=== PATIENT | male | born 1950 | race Caucasian/White ===

== ENCOUNTER 2018-11-01 16:08 | Inpatient (IN) | payer MEDICARE ==
[~2018-11-01] VITALS: Ht 182.9 cm; Wt 145.0 kg
[~2018-11-01 16:08] MED LIST: ACET325 PO; ARIXTRA SC; ASPI325 PO; Aspirin EC81 MG PO; BRILINTA90 MG PO; CHLO25B PO; CHLOROTHALIDONE PO; DOC250 PO; FOLI1 PO; HUMULIN R500 UNIT/1 SC; Hair, Skin & N1 EACH PO; LISI20 PO; LOSARTAN POTAS100 MG PO; METF500C PO; METO50 PO; NITR.4SL SL; PRAV20 PO; PYRI100 PO; Pepcid20 MG PO; SILD50TA PO; TAMS.4ER PO; THIA100 PO; Zofran Odt4 MG SL; [UNRECOGNIZED DRUG - OTHER] SC
[2018-11-01] MEDS ORDERED: VITAMIN B-121000 MCG PO (17:29)
[2018-11-01] MEDS ORDERED: CYCL10 PO (17:29)
[2018-11-01] MEDS ORDERED: TRULICITY1.5 MG/0.5 SC (17:30)
[2018-11-01] MEDS ORDERED: LOSA25 PO (17:30)
[2018-11-01] MEDS ORDERED: Glucose4 GM PO (17:31)
[2018-11-02 05:22] LABS: BASOPHILS ABSOLUTE AUTO 0.04 K/mm3 (0.00-0.23); BASOPHILS PERCENT AUTO 1 % (0-2); EOSINOPHILS ABSOLUTE AUTO 0.11 K/mm3 (0.00-0.68); EOSINOPHILS PERCENT AUTO 2 % (0-6); Hemoglobin 14.3 g/dL (13.5-17.5); IMMATURE GRAN ABSOLUTE AUTO 0.02 K/mm3 (0.00-0.10); IMMATURE GRAN PERCENT AUTO 0 % (0-1); LYMPHOCYTES ABSOLUTE AUTO 1.45 K/mm3 (0.84-5.20); LYMPHOCYTES PERCENT AUTO 27 % (21-46); MONOCYTES ABSOLUTE AUTO 0.67 K/mm3 (0.16-1.47); MONOCYTES PERCENT AUTO 13 % (4-13); Mean Corpuscular HGB 29.5 pg (26.0-34.0); Mean Corpuscular HGB Conc 33.3 g/dL (31.5-36.5); Mean Corpuscular Volume 89 fL (80-100); Mean Platelet Volume 10.1 fL (9.1-12.4); NEUTROPHILS ABSOLUTE AUTO 3.08 K/mm3 (1.96-9.15); NEUTROPHILS PERCENT AUTO 57 % (41-73); Platelet Count 174 K/mm3 (150-400); RDW Coefficient Variation 13.5 % (11.7-14.2); RDW Standard Deviation 43.8 fL (35.1-46.3); Red Blood Cell Count 4.84 M/mm3 (4.30-5.90); White Blood Cell Count 5.37 K/mm3 (4.00-11.30)
[2018-11-02 05:35] LABS: International Normalized Ratio 1.05; Prothrombin Time Results 11.1 Sec (9.7-11.5)
[2018-11-02 05:56] LABS: Anion Gap 8 mmol/L (6-16); Blood Urea Nitrogen 18 mg/dL (8-24); Bun/Creatinine Ratio 20.3 (12.0-20.0); CO2, Blood 29 mmol/L (21-32); Calcium, Blood 8.9 mg/dL (8.5-10.1); Chloride, Blood 105 mmol/L (98-108); Creatinine, Blood 0.89 mg/dL (0.60-1.20); Glomerular Filtration Rate >60 (60-); Glucose, Blood 84 mg/dL (70-99); Magnesium, Blood 2.1 mg/dL (1.6-2.4); Potassium, Blood 3.3 mmol/L (3.5-5.5); Sodium, Blood 142 mmol/L (136-145)
--- NOTE | 2018-11-02 11:15 | NUR ---
Assumed Care: Assumed care of pt at approx 1030 when pt arrived to room from . Pt has R radial access site that is free from s/sx of bleed or hematoma and has TR band in place. Spoke with Dr. Montoya who does not want to resume any anticoagulation at this time when asked, is okay if pt eats lunch, but would like pt to be NPO after that. Pt is A&Ox4. See shift assessment for detailed assessment. Plan is to transfer pt to [facility] for bypass likely today. Lungs clear and breathing e/u on RA. Pt currently resting in bed with call light within reach. Denies any further questions, complaints or requests at this time. Will continue to [facility].
--- NOTE | 2018-11-02 11:55 | NUR ---
Update: Pt given nitro x2 doses for c/o chest pressure 10/16. States that pressure in chest has completely resolved with the 2 doses.
--- NOTE | 2018-11-02 15:37 | NUR ---
Summary/[facility] Transfer: Pt transferred via [facility] transfer w/EMS at approx 1530. VSS. In no apparent sign of distress. No changes in mentation. Pt has denied any further CP/Pressure since he was medicated with nitro x2 in this unit. Report called to HERRERA Valera at [facility]. Pt sent with all belongings and needed paperwork. Denies any further questions, complaints or requests at time of transfer.
== END 2018-11-02 15:42 | disposition short-term general hospital (02) | DRG 287 ==
LOC: ER 16:08 → ERHOLD 17:35 → PCU 11-02 08:47
PROVIDERS: Internal Medicine Cardiovascular Disease; ADMIT Internal Medicine
PROC: B2111ZZ Fluoroscopy of Multiple Coronary Arteries using Low Osmolar Contrast (ICD-10-PCS; principal; 2018-11-02)
PROC: 4A023N7 Measurement of Cardiac Sampling and Pressure, Left Heart, Percutaneous Approach (ICD-10-PCS; 2018-11-02)
DX: I25.110 Atherosclerotic heart disease of native coronary artery with unstable angina pectoris (principal); I45.2 Bifascicular block; E66.2 Morbid (severe) obesity with alveolar hypoventilation; T82.855A Stenosis of coronary artery stent, initial encounter; G43.909 Migraine, unspecified, not intractable, without status migrainosus; E11.9 Type 2 diabetes mellitus without complications; M10.9 Gout, unspecified; Z95.5 Presence of coronary angioplasty implant and graft; D45 Polycythemia vera; Z86.718 Personal history of other venous thrombosis and embolism; E78.5 Hyperlipidemia, unspecified; I10 Essential (primary) hypertension; I25.2 Old myocardial infarction; N40.0 Benign prostatic hyperplasia without lower urinary tract symptoms; G89.29 Other chronic pain; M19.90 Unspecified osteoarthritis, unspecified site; Z79.4 Long term (current) use of insulin; Z87.891 Personal history of nicotine dependence; Z86.711 Personal history of pulmonary embolism
CPT/HCPCS: 36415; 80048; 82947; 83735; 84484; 85025; 85610; 86850; 86900; 86901; 93005; 93010; 93458; 99152; 99153; 99285-25; C1769; C1887; C1894; C8929; J0690; J1644; J2250; J3010; J7030; Q9957; Q9967

== ENCOUNTER 2018-11-15 12:31 | Emergency (ER) | payer SELFPAY ==
[~2018-11-15] VITALS: Ht 182.9 cm; Wt 140.6 kg
[~2018-11-15 12:31] MED LIST changes: +CYCL10 PO; +Glucose4 GM PO; +LOSA25 PO; +TRULICITY1.5 MG/0.5 SC; +VITAMIN B-121000 MCG PO
== END 2018-11-15 15:03 | disposition home or self-care (01) ==
LOC: ER 12:31
DX: I97.631 Postprocedural hematoma of a circulatory system organ or structure following cardiac bypass (principal); I25.2 Old myocardial infarction; E11.9 Type 2 diabetes mellitus without complications; Z86.718 Personal history of other venous thrombosis and embolism; Z87.891 Personal history of nicotine dependence; Z79.82 Long term (current) use of aspirin; Z79.899 Other long term (current) drug therapy; Z79.4 Long term (current) use of insulin; Z95.1 Presence of aortocoronary bypass graft
CPT/HCPCS: 36415; 93005; 93010; 93971; 99284-25

== ENCOUNTER 2018-11-27 06:23 | Emergency (ER) | payer MEDICARE ==
[~2018-11-27] VITALS: Ht 182.9 cm; Wt 131.5 kg
[2018-11-27] MEDS ORDERED: TRULICITY1.5 MG/0.5 SQ (06:43)
[2018-11-27] MEDS ORDERED: DICLOFENAC GEL (06:48)
[2018-11-27] MEDS ORDERED: FURO40 PO (06:48)
[2018-11-27 07:03] LABS: BASOPHILS ABSOLUTE AUTO 0.02 K/mm3 (0.00-0.23); BASOPHILS PERCENT AUTO 0 % (0-2); EOSINOPHILS PERCENT AUTO 0 % (0-6); Hemoglobin 11.9 g/dL (13.5-17.5); IMMATURE GRAN ABSOLUTE AUTO 0.06 K/mm3 (0.00-0.10); IMMATURE GRAN PERCENT AUTO 1 % (0-1); LYMPHOCYTES PERCENT AUTO 6 % (21-46); MONOCYTES ABSOLUTE AUTO 0.57 K/mm3 (0.16-1.47); MONOCYTES PERCENT AUTO 5 % (4-13); Mean Corpuscular HGB 27.5 pg (26.0-34.0); Mean Corpuscular HGB Conc 32.2 g/dL (31.5-36.5); Mean Corpuscular Volume 86 fL (80-100); Mean Platelet Volume 9.8 fL (9.1-12.4); NEUTROPHILS ABSOLUTE AUTO 10.42 K/mm3 (1.96-9.15); NEUTROPHILS PERCENT AUTO 89 % (41-73); Platelet Count 251 K/mm3 (150-400); RDW Coefficient Variation 14.3 % (11.7-14.2); RDW Standard Deviation 44.6 fL (35.1-46.3); Red Blood Cell Count 4.32 M/mm3 (4.30-5.90); White Blood Cell Count 11.77 K/mm3 (4.00-11.30)
[2018-11-27 07:13] LABS: Alanine Aminotransfer (ALT/SGP 40 U/L (12-78); Albumin, Blood 3.2 g/dL (3.4-5.0); Albumin/Globulin Ratio 0.8 (0.8-1.8); Alk Phos 133 U/L (50-136); Anion Gap 13 mmol/L (6-16); Aspartate Aminotrans (AST/SGOT 33 U/L (12-37); Bilirubin, Total 2.1 mg/dL (0.1-1.0); Blood Urea Nitrogen 19 mg/dL (8-24); Bun/Creatinine Ratio 18.8 (12.0-20.0); CO2, Blood 27 mmol/L (21-32); Calcium, Blood 8.9 mg/dL (8.5-10.1); Chloride, Blood 92 mmol/L (98-108); Creatinine, Blood 1.01 mg/dL (0.60-1.20); Glomerular Filtration Rate >60 (60-); Glucose, Blood 290 mg/dL (70-99); Potassium, Blood 2.9 mmol/L (3.5-5.5); Sodium, Blood 132 mmol/L (136-145); Total Protein, Blood 7.2 g/dL (6.4-8.2); Troponin I <0.015 ng/mL (0.000-0.040)
[2018-11-27 10:47] LABS: Source, Urine Voided
[2018-11-27 10:59] LABS: Bilirubin, Urine Neg (Neg); Blood, Urine Neg (Neg); Glucose Qualitative, Urine Neg (Neg); Ketones, Urine Neg (Neg); Leukocyte Esterase, Urine Neg (Neg); Nitrite, Urine Neg (Neg); Protein, Urine 1+ (Neg); Urobilinogen, Urine NORM (Normal)
[2018-11-27 11:46] LABS: Anion Gap 9 mmol/L (6-16); Blood Urea Nitrogen 17 mg/dL (8-24); Bun/Creatinine Ratio 18.9 (12.0-20.0); CO2, Blood 26 mmol/L (21-32); Calcium, Blood 7.4 mg/dL (8.5-10.1); Chloride, Blood 101 mmol/L (98-108); Glomerular Filtration Rate >60 (60-); Glucose, Blood 252 mg/dL (70-99); Potassium, Blood 3.3 mmol/L (3.5-5.5); Sodium, Blood 136 mmol/L (136-145)
[2018-11-27 11:49] LABS: Appearance, Urine Clear (Clear); Color, Urine Yellow (P-Yellow)
--- NOTE | 2018-11-27 14:28 | NUR ---
Echocardiogram completed.
== END 2018-11-27 18:57 | disposition short-term general hospital (02) ==
LOC: ER 06:23
PROVIDERS: Emergency Medicine
DX: L03.115 Cellulitis of right lower limb (principal); Z88.8 Allergy status to other drugs, medicaments and biological substances; Z79.899 Other long term (current) drug therapy; Z79.4 Long term (current) use of insulin; Z79.82 Long term (current) use of aspirin; I25.2 Old myocardial infarction; E11.9 Type 2 diabetes mellitus without complications; Z87.891 Personal history of nicotine dependence
CPT/HCPCS: 36415; 71045; 80048; 80053; 83605; 83880; 84484; 85025; 93005; 93010; 93308; 93321; 96361; 96365-59; 96366; 96375-59; 99285-25; A9270-GY; J1644; J2250; J2405; J3010; J3370; J7030; J7050; J7120

== ENCOUNTER 2021-01-24 20:03 | Inpatient (IN) | payer OTHER ==
[~2021-01-24] VITALS: Ht 185.4 cm; Wt 133.9 kg
[~2021-01-24 20:03] MED LIST changes: -ARIXTRA SC; +ARIXTRA10 MG/0.8 SC; -Aspirin EC81 MG PO; +DICLOFENAC GEL; -DOC250 PO; +DOCU100 PO; -FOLI1 PO; +FURO40 PO; +Folic Acid0.8 MG PO; +TRULICITY1.5 MG/0.5 SQ
[2021-01-24 20:29] LABS: BASOPHILS ABSOLUTE AUTO 0.02 K/mm3 (0.00-0.23); BASOPHILS PERCENT AUTO 0 % (0-2); EOSINOPHILS PERCENT AUTO 0 % (0-6); Hematocrit 47.7 % (37.0-53.0); Hemoglobin 16.6 g/dL (13.5-17.5); IMMATURE GRAN ABSOLUTE AUTO 0.01 K/mm3 (0.00-0.10); IMMATURE GRAN PERCENT AUTO 0 % (0-1); LYMPHOCYTES ABSOLUTE AUTO 0.88 K/mm3 (0.84-5.20); LYMPHOCYTES PERCENT AUTO 20 % (21-46); MONOCYTES ABSOLUTE AUTO 0.28 K/mm3 (0.16-1.47); MONOCYTES PERCENT AUTO 6 % (4-13); Mean Corpuscular HGB 29.4 pg (26.0-34.0); Mean Corpuscular HGB Conc 34.8 g/dL (31.5-36.5); Mean Corpuscular Volume 84 fL (80-100); Mean Platelet Volume 10.9 fL (9.1-12.4); NEUTROPHILS ABSOLUTE AUTO 3.31 K/mm3 (1.96-9.15); NEUTROPHILS PERCENT AUTO 74 % (41-73); Platelet Count 118 K/mm3 (150-400); RDW Coefficient Variation 15.3 % (11.7-14.2); RDW Standard Deviation 47.2 fL (35.1-46.3); Red Blood Cell Count 5.65 M/mm3 (4.30-5.90)
[2021-01-24 20:42] LABS: International Normalized Ratio 1.04; Prothrombin Time Results 11.2 Sec (9.7-11.5)
[2021-01-24 20:49] LABS: Alanine Aminotransfer (ALT/SGP 52 U/L (12-78); Albumin, Blood 3.2 g/dL (3.4-5.0); Albumin/Globulin Ratio 0.7 (0.8-1.8); Alk Phos 59 U/L (50-136); Anion Gap 13 mmol/L (6-16); Aspartate Aminotrans (AST/SGOT 83 U/L (12-37); Bilirubin, Total 1.1 mg/dL (0.1-1.0); Blood Urea Nitrogen 15 mg/dL (8-24); Bun/Creatinine Ratio 21.1 (12.0-20.0); CO2, Blood 23 mmol/L (21-32); Calcium, Blood 8.8 mg/dL (8.5-10.1); Chloride, Blood 98 mmol/L (98-108); Creatinine, Blood 0.71 mg/dL (0.60-1.20); Globulin, Blood 4.3 g/dL (2.2-4.0); Glomerular Filtration Rate >60 (60-); Glucose, Blood 143 mg/dL (70-99); Potassium, Blood 3.5 mmol/L (3.5-5.5); Sodium, Blood 134 mmol/L (136-145); Total Protein, Blood 7.5 g/dL (6.4-8.2)
[2021-01-24 21:06] LABS: SARS-Cov-2 (COVID-19) PCR, MMC POSITIVE (NEGATIVE)
[2021-01-24 22:20] LABS: C-Reactive Protein, High Sens. 78.1 mg/L (0.000-3.000)
[2021-01-24] MEDS ORDERED: METF500C PO (22:55)
[2021-01-24] MEDS ORDERED: JARDIANCE25 MG PO (22:55)
[2021-01-24] MEDS ORDERED: Hair, Skin & N1 EACH PO (22:56)
[2021-01-24] MEDS ORDERED: PYRI100 PO (22:56)
[2021-01-24] MEDS ORDERED: GABA300 PO (22:56)
[2021-01-24] MEDS ORDERED: LACT PO (22:56)
[2021-01-24] MEDS ORDERED: LOSA25 PO (22:57)
[2021-01-24] MEDS ORDERED: OMEP20ER PO (22:57)
[2021-01-24] MEDS ORDERED: ALOGLIPTIN25 M1 PO (22:57)
[2021-01-24] MEDS ORDERED: Aspirin EC81 MG PO (23:01)
--- NOTE | 2021-01-25 01:55 | NUR ---
PT ADMITTED TO PCU FROM ER. PT REQUESTING TO STAND AT BEDSIDE FOR URINATION - USE OF URINAL WITH SBA. PT THEN ABLE TO STAND AND PIVOT TO PCU BED. PT HAS NON-REBREATHER ON AT 15L OXYGEN. ONCE PT SETTLED INTO BED, CPAP PLACED ON - 70% FIO2. CONTINUOUS BIOX PLACED ON - SATS WNL. PT HAS A SCAR TO HIS RIGHT LOWER EXTREMITY. ORIENTED TO ROOM, CALL LIGHT, AND RAPID RESPONSE. FLUIDS AT BEDSIDE. BED IN LOW POSITION. CALL LIGHT WITHIN REACH.
--- NOTE | 2021-01-25 04:00 | NUR ---
SPOKE TO DR. LOVING - UPDATED ON PT'S QT OF .[address] LOVING REQUESTED ADD ON OF MAGNESIUM TO AM LABS - DONE. PT DENIES ANY CHEST PAIN OR DISCOMFORT. CALL LIGHT WITHIN REACH. BED IN LOW POSITION.
[2021-01-25 04:19] LABS: BASOPHILS ABSOLUTE AUTO 0.01 K/mm3 (0.00-0.23); BASOPHILS PERCENT AUTO 0 % (0-2); EOSINOPHILS PERCENT AUTO 0 % (0-6); Hematocrit 48.9 % (37.0-53.0); Hemoglobin 16.3 g/dL (13.5-17.5); IMMATURE GRAN ABSOLUTE AUTO 0.01 K/mm3 (0.00-0.10); IMMATURE GRAN PERCENT AUTO 0 % (0-1); LYMPHOCYTES ABSOLUTE AUTO 0.49 K/mm3 (0.84-5.20); LYMPHOCYTES PERCENT AUTO 16 % (21-46); MONOCYTES ABSOLUTE AUTO 0.15 K/mm3 (0.16-1.47); MONOCYTES PERCENT AUTO 5 % (4-13); Mean Corpuscular HGB 28.8 pg (26.0-34.0); Mean Corpuscular HGB Conc 33.3 g/dL (31.5-36.5); Mean Corpuscular Volume 87 fL (80-100); Mean Platelet Volume 10.5 fL (9.1-12.4); NEUTROPHILS ABSOLUTE AUTO 2.32 K/mm3 (1.96-9.15); NEUTROPHILS PERCENT AUTO 78 % (41-73); Platelet Count 107 K/mm3 (150-400); RDW Coefficient Variation 15.4 % (11.7-14.2); RDW Standard Deviation 48.7 fL (35.1-46.3); Red Blood Cell Count 5.65 M/mm3 (4.30-5.90); White Blood Cell Count 2.98 K/mm3 (4.00-11.30)
[2021-01-25 04:39] LABS: Alanine Aminotransfer (ALT/SGP 44 U/L (12-78); Albumin, Blood 3.1 g/dL (3.4-5.0); Albumin/Globulin Ratio 0.7 (0.8-1.8); Alk Phos 61 U/L (50-136); Anion Gap 17 mmol/L (6-16); Aspartate Aminotrans (AST/SGOT 55 U/L (12-37); Bilirubin, Total 0.9 mg/dL (0.1-1.0); Blood Urea Nitrogen 19 mg/dL (8-24); Bun/Creatinine Ratio 22.5 (12.0-20.0); CO2, Blood 20 mmol/L (21-32); Calcium, Blood 8.6 mg/dL (8.5-10.1); Chloride, Blood 98 mmol/L (98-108); Creatinine, Blood 0.85 mg/dL (0.60-1.20); Globulin, Blood 4.3 g/dL (2.2-4.0); Glomerular Filtration Rate >60 (60-); Glucose, Blood 255 mg/dL (70-99); Magnesium, Blood 2.2 mg/dL (1.6-2.4); Potassium, Blood 3.3 mmol/L (3.5-5.5); Sodium, Blood 135 mmol/L (136-145); Total Protein, Blood 7.4 g/dL (6.4-8.2)
--- NOTE | 2021-01-25 05:39 | NUR ---
NO ACUTE CHANGES SINCE ADMIT AT 0155 TONIGHT. PT HAS BEEN SLEEPING WITH CPAP IN PLACE FOR APPX 2 HOURS TONIGHT. MAGNESIUM LEVEL WNL THIS AM. CONTINUOUS BIOX ON - SATS WNL. URINE CLEAR YELLOW. PT STOOD AT THE BEDSIDE WITH A SBA - USING URINAL - WILL SEND/REPORT OFF TO ONCOMING SHIFT, NEED FOR URINE SAMPLE. CALL LIGHT WITHIN REACH. BED IN LOW POSITION. FLUIDS AT BEDSIDE.
--- NOTE | 2021-01-25 06:44 | NUR ---
PT PLACED ON ISABELL CONTINOUS BIOX. SATS WNL ON CPAP, 70% O2. CALL LIGHT WITHIN REACH. BED IN LOW POSITION.
--- NOTE | 2021-01-25 16:50 | NUR ---
Spiritual care visit conducted. Patient immediately tells me about the sturggles he is having emotionally and about personal information connected depression. We discuss the effects of the virus causing in some patients depression and even SI. We explore sources of meaning and value and his spiritual beliefs. I reinforce helpful attitudes and practices, normalize his experience and provide therapeutic listening, pastoral certified alcohol drug counselor, recitation of scripture and prayer. Patient responds well and states that he is very encouraged and feeling more hopeful. I will continue to assist patient in the emotional/spiritual aspects of dealing with illness.
--- NOTE | 2021-01-25 18:38 | NUR ---
SHIFT SUMMARY PT ALERT AND ORIENTED X 4. HR STABLE. BP STABLE. NO CP OR PRESSURE REPORTED. OXYGEN SATURATION MAINTAINED ABOVE 90% ON 15 L OF OXYGEN VIA HIGH FLOW NC OR 70% FIO2 VIA CPAP. PT ENCOURAGED TO PRONE. WHEN PRONING PT'S OXYGEN SATURATION IMPROVES TO 95%. PT TOLERATING WELL. PT REPORTS TO THIS RN HE WANTS TO "GIVE UP" PASTORAL CARE NOTIFIED. SEE NOTES. PT REPORTS IMPROVEMENT IN MENTAL STATE. PT REPORTS TO THIS RN THAT HE FEELS HE HAS TROUBLE WITH SWALLOWING AND FOOD AND DRINK GET "STUCK" IN HIS THROAT. PHYSICIAN NOTIFIED. SPEECH EVAL ORDERED. WILL CONT TO MONITOR UNTIL REPORT GIVEN TO ULISES SILVERMAN.
[2021-01-26 05:07] LABS: BASOPHILS PERCENT AUTO 0 % (0-2); EOSINOPHILS PERCENT AUTO 0 % (0-6); Hematocrit 48.8 % (37.0-53.0); Hemoglobin 16.7 g/dL (13.5-17.5); IMMATURE GRAN ABSOLUTE AUTO 0.01 K/mm3 (0.00-0.10); IMMATURE GRAN PERCENT AUTO 0 % (0-1); LYMPHOCYTES PERCENT AUTO 14 % (21-46); MONOCYTES ABSOLUTE AUTO 0.37 K/mm3 (0.16-1.47); MONOCYTES PERCENT AUTO 6 % (4-13); Mean Corpuscular HGB 29.1 pg (26.0-34.0); Mean Corpuscular HGB Conc 34.2 g/dL (31.5-36.5); Mean Corpuscular Volume 85 fL (80-100); Mean Platelet Volume 10.4 fL (9.1-12.4); NEUTROPHILS ABSOLUTE AUTO 4.59 K/mm3 (1.96-9.15); NEUTROPHILS PERCENT AUTO 80 % (41-73); Platelet Count 135 K/mm3 (150-400); RDW Coefficient Variation 15.3 % (11.7-14.2); RDW Standard Deviation 47.3 fL (35.1-46.3); Red Blood Cell Count 5.74 M/mm3 (4.30-5.90); White Blood Cell Count 5.77 K/mm3 (4.00-11.30)
[2021-01-26 05:28] LABS: Albumin, Blood 3.1 g/dL (3.4-5.0); Anion Gap 8 mmol/L (6-16); Blood Urea Nitrogen 29 mg/dL (8-24); Bun/Creatinine Ratio 40.1 (12.0-20.0); CO2, Blood 28 mmol/L (21-32); Calcium, Blood 8.8 mg/dL (8.5-10.1); Chloride, Blood 101 mmol/L (98-108); Creatinine, Blood 0.72 mg/dL (0.60-1.20); Glomerular Filtration Rate >60 (60-); Glucose, Blood 207 mg/dL (70-99); Magnesium, Blood 2.5 mg/dL (1.6-2.4); Phosphorus, Blood 2.4 mg/dL (2.5-4.9); Potassium, Blood 2.9 mmol/L (3.5-5.5); Sodium, Blood 137 mmol/L (136-145)
[2021-01-26 06:23] LABS: Source, Urine Voided
[2021-01-26 06:31] LABS: Appearance, Urine Clear (Clear); Bilirubin, Urine Neg (Neg); Blood, Urine Neg (Neg); Color, Urine Yellow (P-Yellow); Glucose Qualitative, Urine 4+ (Neg); Ketones, Urine 1+ (Neg); Leukocyte Esterase, Urine Neg (Neg); Nitrite, Urine Neg (Neg); Protein, Urine 1+ (Neg); Specific Gravity, Urine 1.015 (1.003-1.022); Urobilinogen, Urine NORM (Normal)
[2021-01-26 15:04] LABS: Albumin, Blood 3.3 g/dL (3.4-5.0); Anion Gap 9 mmol/L (6-16); Blood Urea Nitrogen 32 mg/dL (8-24); Bun/Creatinine Ratio 33.7 (12.0-20.0); CO2, Blood 28 mmol/L (21-32); Calcium, Blood 8.8 mg/dL (8.5-10.1); Chloride, Blood 98 mmol/L (98-108); Creatinine, Blood 0.95 mg/dL (0.60-1.20); Glomerular Filtration Rate >60 (60-); Glucose, Blood 248 mg/dL (70-99); Magnesium, Blood 2.3 mg/dL (1.6-2.4); Phosphorus, Blood 1.4 mg/dL (2.5-4.9); Potassium, Blood 3.5 mmol/L (3.5-5.5); Sodium, Blood 135 mmol/L (136-145)
--- NOTE | 2021-01-26 18:09 | NUR ---
SHIFT SUMMARY; ASSUMED CARE AT 0700, REPORT FROM ISSAC. A/A/0X4 DURING SHIFT. AIRVO THROUGHOUT SHIFT, DECREASED BY RT TO 70% 50L. SOB WITH EXERTION. UP IN CHAIR AT BEDSIDE FOR ENTIRE SHIFT. INDEPENDANT TO BSC. VSS, NSR SATS 89-90%, SPEAKING FULL SENTENCES. NO ACUTE MEDICAL CHANGES DURING SHIFT, WILL CONTINUE TO MONITOR AND TREAT UNTIL CHANGE OF SHIFT.
--- NOTE | 2021-01-27 04:34 | NUR ---
SHIFT SUMMARY PT A&OX4. SP02>90% ON 50L AIRVO/CPAP, 75% FI02. PT SOB W/ EXERTION. PRONED OCCASIONALLY. TELEMETRY READS SR W/ BBB, HR 50'S-70'S. PT C/O OF BACK PAIN THIS SHIFT, MEDICATED W/ TYLENOL PER EMAR X1. PT VOIDED IN URINAL AT BEDSIDE. PT REQUESTED THIS RN CALL SON, MARCK, TO UPDATE HIM. CALL LIGHT IN REACH. WILL GIVE REPORT TO ONCOMING NURSE.
--- NOTE | 2021-01-27 15:03 | NUR ---
Spiritual care visit conducted. Patient is in better spirits today and states that he has been up in the chair and walking around a very little bit but he was unable to do so yesterday. Patient tells me that the visit from spiritual care two days ago was very pivital to turning his focus around to a positive direction. I continue to use gentle encouragement, recitation of scripture, pasoral drug and alcohol counselor and prayer to lighten the emotional/spiritual weight patient is carrying. Patient states that again the visit brought added strength to patient and voices appreciation. I will continue to remain available to patient and family
--- NOTE | 2021-01-27 17:54 | NUR ---
SHIFT SUMMARY; ASSUMED CARE AT 0700. A/A/OX4 THROUGHOUT SHIFT. UP TO CHAIR AT BEDSIDE MOST OF SHIFT. AIRVO DECREASED TO 60% 55L BY RT. SOB WITH EXERTION. SATS 88-91%, VSS, BED BATH TODAY. INDEPENDANT IN ROOM WITH REPOSITIONING AND BEDSIDE COMMODE. NO ACUTE CHANGES DURING SHIFT. WILL CONTINUE TO MONITOR AND TREAT UNTIL CHANGE OF SHIFT.
--- NOTE | 2021-01-27 19:24 | NUR ---
ASSUMED CARE OF PATIENT. IN ISOLATION DUE TO COVID. WILL MINIMIZE CONTACT SEE [facility] SHIFT SUMMARY FOR FULL ASSESSMENT.
[2021-01-28 03:58] LABS: BASOPHILS ABSOLUTE AUTO 0.01 K/mm3 (0.00-0.23); BASOPHILS PERCENT AUTO 0 % (0-2); EOSINOPHILS PERCENT AUTO 0 % (0-6); Hematocrit 46.3 % (37.0-53.0); Hemoglobin 15.6 g/dL (13.5-17.5); IMMATURE GRAN ABSOLUTE AUTO 0.03 K/mm3 (0.00-0.10); IMMATURE GRAN PERCENT AUTO 0 % (0-1); LYMPHOCYTES PERCENT AUTO 13 % (21-46); MONOCYTES ABSOLUTE AUTO 0.37 K/mm3 (0.16-1.47); MONOCYTES PERCENT AUTO 5 % (4-13); Mean Corpuscular HGB 29.1 pg (26.0-34.0); Mean Corpuscular HGB Conc 33.7 g/dL (31.5-36.5); Mean Corpuscular Volume 86 fL (80-100); Mean Platelet Volume 10.7 fL (9.1-12.4); NEUTROPHILS ABSOLUTE AUTO 5.85 K/mm3 (1.96-9.15); NEUTROPHILS PERCENT AUTO 82 % (41-73); Platelet Count 174 K/mm3 (150-400); RDW Coefficient Variation 15.1 % (11.7-14.2); RDW Standard Deviation 47.8 fL (35.1-46.3); Red Blood Cell Count 5.36 M/mm3 (4.30-5.90); White Blood Cell Count 7.16 K/mm3 (4.00-11.30)
[2021-01-28 04:21] LABS: Alanine Aminotransfer (ALT/SGP 51 U/L (12-78); Albumin, Blood 2.9 g/dL (3.4-5.0); Albumin/Globulin Ratio 0.7 (0.8-1.8); Alk Phos 79 U/L (50-136); Anion Gap 8 mmol/L (6-16); Aspartate Aminotrans (AST/SGOT 44 U/L (12-37); Bilirubin, Total 0.9 mg/dL (0.1-1.0); Blood Urea Nitrogen 26 mg/dL (8-24); Bun/Creatinine Ratio 37.5 (12.0-20.0); CO2, Blood 29 mmol/L (21-32); Calcium, Blood 8.4 mg/dL (8.5-10.1); Chloride, Blood 98 mmol/L (98-108); Creatinine, Blood 0.69 mg/dL (0.60-1.20); Glomerular Filtration Rate >60 (60-); Glucose, Blood 232 mg/dL (70-99); Magnesium, Blood 2.2 mg/dL (1.6-2.4); Phosphorus, Blood 2.7 mg/dL (2.5-4.9); Sodium, Blood 135 mmol/L (136-145); Total Protein, Blood 6.9 g/dL (6.4-8.2)
--- NOTE | 2021-01-28 06:24 | NUR ---
DIFFICULT KEEP O2 SATS UP ON ARVO, HISTORY AND ORDERS NOTED THAT PATIENT WEARS BIPAP AT HOME. PLACED ON BIPAP AND O2 SATS STABILIZED AND PATIENT RESTED QUIETLY REST OF SHIFT
--- NOTE | 2021-01-28 10:37 | NUR ---
PHYSICIAN UPDATE PHYSICIAN NOTIFIED OF PT'S K+ LEVEL. ORDERS PROVIDED, SEE EMAR.
--- NOTE | 2021-01-28 17:02 | NUR ---
Went to see pt for theraputic visit. Pt very very distraught. He just got off the phone with his family. His who just had open heart surgery is now in ER with nabeel. went and checked on his so i could give him an update and comfort him will continue to monitor.
--- NOTE | 2021-01-28 18:32 | NUR ---
SHIFT SUMMARY PT ALERT AND ORIENTED X 4. HR STABLE. BP STABLE. OXYGEN SATURATION MAINTAINED ABOVE 90% ON AIRVO AT 75% FIO2. NO CP OR PRESSURE REPORTED. PALLIATIVE CARE TO SEE PT. PT ENCOURAGED TO PRONE. PT ABLE TO TURN SELF IN BED. WILL CONT TO MONITOR UNTIL REPORT GIVEN TO EDGAR SILVERMAN.
[2021-01-29 03:58] LABS: BASOPHILS ABSOLUTE AUTO 0.02 K/mm3 (0.00-0.23); BASOPHILS PERCENT AUTO 0 % (0-2); EOSINOPHILS ABSOLUTE AUTO 0.02 K/mm3 (0.00-0.68); EOSINOPHILS PERCENT AUTO 0 % (0-6); Hematocrit 44.2 % (37.0-53.0); Hemoglobin 14.9 g/dL (13.5-17.5); IMMATURE GRAN ABSOLUTE AUTO 0.04 K/mm3 (0.00-0.10); IMMATURE GRAN PERCENT AUTO 1 % (0-1); LYMPHOCYTES PERCENT AUTO 13 % (21-46); MONOCYTES ABSOLUTE AUTO 0.23 K/mm3 (0.16-1.47); MONOCYTES PERCENT AUTO 3 % (4-13); Mean Corpuscular HGB 29.3 pg (26.0-34.0); Mean Corpuscular HGB Conc 33.7 g/dL (31.5-36.5); Mean Corpuscular Volume 87 fL (80-100); Mean Platelet Volume 10.2 fL (9.1-12.4); NEUTROPHILS ABSOLUTE AUTO 5.99 K/mm3 (1.96-9.15); NEUTROPHILS PERCENT AUTO 83 % (41-73); Platelet Count 191 K/mm3 (150-400); RDW Coefficient Variation 15.3 % (11.7-14.2); RDW Standard Deviation 48.8 fL (35.1-46.3); Red Blood Cell Count 5.08 M/mm3 (4.30-5.90)
[2021-01-29 04:33] LABS: Alanine Aminotransfer (ALT/SGP 59 U/L (12-78); Albumin, Blood 2.6 g/dL (3.4-5.0); Albumin/Globulin Ratio 0.7 (0.8-1.8); Alk Phos 83 U/L (50-136); Anion Gap 6 mmol/L (6-16); Aspartate Aminotrans (AST/SGOT 48 U/L (12-37); Bilirubin, Total 0.9 mg/dL (0.1-1.0); Blood Urea Nitrogen 20 mg/dL (8-24); Bun/Creatinine Ratio 22.5 (12.0-20.0); CO2, Blood 32 mmol/L (21-32); Calcium, Blood 8.4 mg/dL (8.5-10.1); Chloride, Blood 100 mmol/L (98-108); Creatinine, Blood 0.89 mg/dL (0.60-1.20); Globulin, Blood 3.7 g/dL (2.2-4.0); Glomerular Filtration Rate >60 (60-); Glucose, Blood 98 mg/dL (70-99); Magnesium, Blood 2.2 mg/dL (1.6-2.4); Phosphorus, Blood 2.9 mg/dL (2.5-4.9); Potassium, Blood 3.2 mmol/L (3.5-5.5); Sodium, Blood 138 mmol/L (136-145); Thyroid Stimulating Hormone 0.272 uIU/mL (0.360-4.800); Total Protein, Blood 6.3 g/dL (6.4-8.2)
--- NOTE | 2021-01-29 06:31 | NUR ---
SHIFT SUMMARY PATIENT FOUND TO BE A SLIGHTLY ANXIOUS MAN WHO IS A&OX4. WAS ON BIPAP AT START OF SHIFT BUT HAD COUGHING FIT AND REQUESTED AIRVO SO TRIED THAT FOR A BIT. TOLERATED FOR AN HOUR OR TWO BUT THEN NEEDED TO BE BUT BACK ON BIPAP WITH 85%FIO2 AND BEEN ON THIS REST OF NIGHT. DID NOT WANT TO PRONE BUT ENCOURAGED SIDE LAYING MUCH POSSIBLE AND PATIENT TOLERATED THIS FOR MOST OF SHIFT. PRODDUCTIVE COUGH WITH MODERATE AMOUNT OF ROBBINS SPUTUM WITH THE HELP OF MUCINEX.NSR WITH 1ST DEGREE BBB IN THE 80'S. TOELRATING ADA DIET. VOIDING WELL PER URINAL. UP WITH ONE TO BSC. NO ACUTE CONCERNS AT THIS TIME. WILL CONTINUE TO MONITOR UNTIL REPORT GIVEN TO PRAVEEN SILVERMAN.
--- NOTE | 2021-01-29 08:14 | NUR ---
PER GIVEN ATIVAN 0.5 MG P.O. Q 6 FOR ANXIETY AND GIVE 1/2 DOSE LONG ACTING INSULIN FOR MORNING AND REGULAR DOSE FOR EVENING LONG EATTING. RECHECK B.S IN ONE HOUR.
--- NOTE | 2021-01-29 09:24 | NUR ---
LEFT MESSAGE ON , EMILY, VOICE MAIL-"JUST CALLING YOU BACK AND WILL CALL BACK LATER."
--- NOTE | 2021-01-29 09:34 | NUR ---
PER PATIENT HE REQUESTS RN TO CALL HIS SON MARCK IN [place]. MARCK AT [phone] UPDATED.
--- NOTE | 2021-01-29 10:47 | NUR ---
PATIENT , EMILY, UPDATED.
--- NOTE | 2021-01-29 13:45 | NUR ---
UPDATED PATIENT'S SON, ELIZABETH, ON PATIENT CONDITION. PATIENT PRONE AT THIS TIME WITH SATS 96-97 %. SEEMS TO BE TOLERATING WELL. R.T. TO TITRATE F1O2 DOWN TO 85%.
--- NOTE | 2021-01-29 18:06 | NUR ---
ALERT. ORIENTED. WAS ABLE TO LIE PRONE FOR COUPLE HOURS THIS AFTERNOON WITH SATS ABOVE 95%. ON AIRVO AT 65L FIO2 85%. RELATIVE BROUGHT IN PATIENTS OWN CPAP WITH R.T. AWARE. TELE ON. SR AT 67. WCTM
[2021-01-30 03:54] LABS: BASOPHILS ABSOLUTE AUTO 0.01 K/mm3 (0.00-0.23); BASOPHILS PERCENT AUTO 0 % (0-2); EOSINOPHILS ABSOLUTE AUTO 0.03 K/mm3 (0.00-0.68); EOSINOPHILS PERCENT AUTO 1 % (0-6); Hematocrit 46.8 % (37.0-53.0); Hemoglobin 15.6 g/dL (13.5-17.5); IMMATURE GRAN ABSOLUTE AUTO 0.04 K/mm3 (0.00-0.10); IMMATURE GRAN PERCENT AUTO 1 % (0-1); LYMPHOCYTES ABSOLUTE AUTO 0.65 K/mm3 (0.84-5.20); LYMPHOCYTES PERCENT AUTO 10 % (21-46); MONOCYTES ABSOLUTE AUTO 0.18 K/mm3 (0.16-1.47); MONOCYTES PERCENT AUTO 3 % (4-13); Mean Corpuscular HGB 28.8 pg (26.0-34.0); Mean Corpuscular HGB Conc 33.3 g/dL (31.5-36.5); Mean Corpuscular Volume 87 fL (80-100); Mean Platelet Volume 10.2 fL (9.1-12.4); NEUTROPHILS ABSOLUTE AUTO 5.53 K/mm3 (1.96-9.15); NEUTROPHILS PERCENT AUTO 86 % (41-73); Platelet Count 194 K/mm3 (150-400); RDW Coefficient Variation 15.1 % (11.7-14.2); RDW Standard Deviation 48.4 fL (35.1-46.3); Red Blood Cell Count 5.41 M/mm3 (4.30-5.90); White Blood Cell Count 6.44 K/mm3 (4.00-11.30)
[2021-01-30 04:15] LABS: Alanine Aminotransfer (ALT/SGP 77 U/L (12-78); Albumin, Blood 2.3 g/dL (3.4-5.0); Albumin/Globulin Ratio 0.6 (0.8-1.8); Alk Phos 128 U/L (50-136); Anion Gap 4 mmol/L (6-16); Aspartate Aminotrans (AST/SGOT 61 U/L (12-37); Blood Urea Nitrogen 19 mg/dL (8-24); Bun/Creatinine Ratio 24.7 (12.0-20.0); CO2, Blood 32 mmol/L (21-32); Calcium, Blood 8.5 mg/dL (8.5-10.1); Chloride, Blood 101 mmol/L (98-108); Creatinine, Blood 0.77 mg/dL (0.60-1.20); Globulin, Blood 4.1 g/dL (2.2-4.0); Glomerular Filtration Rate >60 (60-); Glucose, Blood 192 mg/dL (70-99); Magnesium, Blood 2.2 mg/dL (1.6-2.4); Sodium, Blood 137 mmol/L (136-145); Total Protein, Blood 6.4 g/dL (6.4-8.2); Troponin I <0.015 ng/mL (0.000-0.040)
--- NOTE | 2021-01-30 06:34 | NUR ---
SHIFT SUMMARY PT ALERT AND ORIENTED X4. HE HAS BEEN DURING GREAT OVERNIGHT. TELE ON SINUS AT 70'S WITH 1ST DEGREE HEART BLOCK AND BBB. PT HAS BEEN RECEIVING ATIVAN DUE TO ANXIETY AND IT SEEM TO HELP HIM LAST NIGHT. HE WAS COMPLIANT WHEN I ENCOURAGE HIM TO LAY IN PRONE POSITION AT SLEEP. HE WAS ON AIRVO LAST NIGHT AT 85% TO 75% AT MIDNIGHT. HE WOULD DESAT INTERMITTENTLY FOR A SHORT TIME TO 83%-90%, ESPECIALLY WHEN HE HAD TO TRANSFER TO HIS BEDSIDE COMMODE. THIS MORNING, HE DESAT ON 80'S, REPOSITIONED, SAT UP, CLEARED HIS NOSE STATING "I DONT FEEL GOOD", COUGHED UP PHLEGM. THEN HE STARTED TO DESAT ON 70'S. I REPOSITIONED THE PATIENT TO PRONE POSITION WITH AIRVO BACK ON, CALLED RESPIRATORY CARE. RT CAME IN AND PUT HIM TO BIPAP BECAUSE HIS SATURATION WAS NOT IMPROVING. SOON PT USED HIS BIPAP, HIS SATURATION IMPROVED TO 95%. PT SAT IN HIGH FIELD POSITION, FEELING ANXIOUS STATING "I THOUGHT YOU'RE GONNA LOSE ME" ENCOURAGE THE PATIENT TO RELAX, AND TAKE GOOD DEEP BREATHES AND REASSURES THAT WE WILL KEEP MONITORING HIM AND DO THE BEST WE CAN TO HELP HIM. PT IS NOW COMFORTABLE RESTING IN BED. VSS. CALL LIGHT WITHIN REACH. WILL CONTINUE TO MONITOR AND PROVIDE REPORT TO ONCOMING NURSE.
--- NOTE | 2021-01-30 09:28 | NUR ---
PT UPDATE/TRANSFER TO ICU UPON THIS ESTIMATOR BINDING PT IS SOB AND STATING HE "CANT BREATH." RT NOTIFIED. GEOTECHNICAL FIELD TECHNICIAN NOTIFIED AND PHYSICIAN CALLED. ONE TIME DOSE OF ATIVAN ORDERED AND GIVEN PER PHYSICIAN. PT REPORTS PAIN IN LUNGS ON R SIDE, AFTER ATIVAN GIVEN REPORTS RELIEF. PT UNABLE TO TOLERATE REMOVING BIPAP. PHYSICIAN ORDERS TO HAVE PT MOVED TO ICU STATUS. INVESTIGATOR FRAUD NOTIFIED. OXYGEN SATURATION MAINTAINED ABOVE 90% ON 100% FIO2 ON BIPAP. PT TRANSFERRED TO ICU 5 WITH THIS RN, GEOTECHNICAL FIELD TECHNICIAN AND RT. REPORT GIVEN TO KARLA Wells RN AT BEDSIDE. INVESTIGATOR FRAUD UPDATED ON PT AT BEDSIDE. PT BELONGINGS TRANSFERRED WITH PT. SPOKE WITH HOSPITALIST. WILL UPDATE ON PT TRANSFER AT THIS TIME.
--- NOTE | 2021-01-30 09:45 | NUR ---
DR. VILLALOBOS CONSULTED PT. NOTED TO HAVE CHEST PAIN UPON ARRIVAL TO ICU, EKG DONE WITH NOTED CHANGES. DR. VILLALOBOS AT BEDSIDE TO EVAL, ENLISTED ADVISOR TEAM ACTIVATED BY NURSING SUP FOR STEMI. ASA, BRILINTA, AND HEPARIN GIVEN PER DR. CLAYTON.
[2021-01-30 10:04] LABS: Ferritin, Serum 594 ng/mL (26-388)
[2021-01-30 10:08] LABS: C-REACTIVE PROTEIN, EXT RANGE >19.000 mg/dL (0.000-0.300)
--- NOTE | 2021-01-30 11:13 | NUR ---
UPDATED FAMILY PT. FAMILY UPDATED PER PT. REQUEST PRIOR TO DEPARTURE TO ICER MACHINE.
--- NOTE | 2021-01-30 11:30 | NUR ---
PT TRANSFERED TO ICU 5 @ APPTOX 0900, ALERT AND ORIENTED, ANXIOUS AND RESTLESS AT TIMES, ON BIPAP FiO2 100%. MONITOR SHOWS CARDIAC RHYTHM WITH ST ELEVATIONS, PT HYPERTENSIVE. PT REPORTED CP ON PREVIOUS UNIT, DENIED UPON ARRIVAL TO ICU. DR PILLAI AT BEDSIDE, PRECEDEX INITIATED, EKG ORDERED AND COMPLETED. DR HOBBS ON UNIT, EVALUATED EKG, STEMI TEAM ACTIVATED. DR PILLAI NOTIFIED OF BLOOD PRESSURE TRENDING DOWN, CENTRAL LINE PLACED TO [facility], LEVO GTT INITIATED AND PT TAKEN TO TRAVEL PT @ APPROX 1115.
[2021-01-30 14:28] LABS: PCO2 Arterial 46.9 mmHg (35-45); PO2 Arterial 35.3 mmHg (80-100); pH Blood Arterial 7.36 (7.35-7.45)
--- NOTE | 2021-01-30 14:58 | NUR ---
PT REMAINS IN WRITING CENTER DIRECTOR AT THIS TIME. REPORT GIVEN TO SHAILESH SILVERMAN TO ASSUME CARE OF PT UPON RETURN FROM WRITING CENTER DIRECTOR.
[2021-01-30 16:21] LABS: PCO2 Arterial 47.5 mmHg (35-45); PO2 Arterial 60.9 mmHg (80-100); pH Blood Arterial 7.39 (7.35-7.45)
--- NOTE | 2021-01-30 17:29 | NUR ---
CALL TO DR. VILLALOBOS REGARDING PT COLD FOOT PER PRIMARY RN, UNABLE TO OBTAIN PEDAL/ TIBIAL PULSES VIA DOPPLER TO RIGHT FOOT NOW COOL TO TOUCH. LEFT FOOT REMAINS WARM WITH TIBIAL DOPPLER PULSES NOTED. CARDIAC CALCS ALSO REPORTED. PER ORDER HEPARIN TO BE STARTED NOW WITH NO BOLUS AND TITRATED FOR PTT 45-60. PHARMACY NOTIFIED OF ORDER CHANGE.
--- NOTE | 2021-01-30 19:26 | NUR ---
ARRIVAL TO ICU FROM CROWNING INSPECTOR/COOLNESS TO RIGHT LEG/SHIFT SUMMARY PT ARRIVES AT 1545. INTUBATED AND SEDATED. VENT SETTINGS AC 14/500/14/100. ETT 8.0 29 AT TEETH. LUNGS CLEAR THROUGHOUT. PROPOFOL GTT FOR SEDATION, PRECEDEX ADDED THIS SHIFT. OGT PLACED, ADVANCED 4 CM p XRAY. PLACED ON LIS. CLEAR/PINK OUT. IABP TO RIGHT GROIN. 1:1, FEB 90-120'S. GOAL MAP>65, LEVO GTT. INFUSING AT 6 MCG/KG/MIN AT THIS TIME. ON ARRIVAL, LEG WAS P/W/D. APPROX 1 HOUR AGO, UNABLE TO DOPPLER PULSES ON RIGHT LEG. DR HOBBS NOTIFIED. ORDERD PLACED TO START HEPARIN SOONER THAN 2100. HEPARIN STARTED AT 12 UNITS/KG/HR, PHARMACY MANAGING. ART LINE TO IABP LOCKED AND NOT PLACED TO PRESSURE BAG, AFTER ATTEMPTING TO ASPIRATE, DR HOBBS AT BEDSIDE, ATTEMPTED ASPIRATION AND MANUAL FLUSH UNSUCCESSFULLY. HELP DESK CALLED, INFORM THAT IABP STILL FUNCTIONAL, TO MOOKIE LINE NO ACCESS POINT. RIGHT FOOT DUSKY, SLIGHTLY COOLER THAN LEFT FOOT. UNABLE TO DOPPLER PULSES, DR HOBBS ABLE TO DOPPLER POSTERIOR TIBIAL. SWAN TO RIGHT GROIN. 70 CM OUT, LINE MARKED ON VALVE DISTAL TO STERILE SHEATH. CO 3.8L, CVP 15. PAS/PAD 50'S/30'S. LINES FLUSHED AND ZERO'D. MORIN PATENT, DRAINING CLEAR YELLOW URINE TO GRAVITY, 1800ML OUT THIS SHIFT. CVC TO RIJ. EKG POST PROCEDURE COMPLETE, RATE 70'S, BBB, NO ST ELEVATION NOTED. REPORT TO LORENZO SILVERMAN.
--- NOTE | 2021-01-30 23:43 | NUR ---
ASSUMED PT CARE FROM HERRERA SY AT 1900 PT INTUBATED AND SEDATED. VENT AC 14, VT 500, PEEP 14, FIO2 100%. RR 17. SPO2 >90%. PT IS VERY SEDATED. PER REPORT PT WAS DIFFICULT TO SEDATE DURING DAMAGE PREVENTION COORDINATOR PROCEDURE; THEREFORE, UPON ASSUMPTION OF CARE PROPOFOL WAS AT 60MCG/KG/MIN, PRECEDEX AT 0.4MCG/KG/HR. INTRA-AORTIC BALLOON PUMP NOTED TO RIGHT GROIN. PA CATHETER TO RIGHT GROIN AT 70CM MARKED, LINE ALSO MARKED ON VALVE DISTAL TO SHEATH. CARDIAC CALCS OBTAINED DURING ASSUMPTION OF CARE, SEE FLOWSHEET. DISTAL PULSES TO RLE ARE ABSENT VIA DOPPLER. DR. HOBBS AT BEDSIDE DURING THIS TIME ATTEMPTING TO OBTAIN A POPLITEAL PULSE, WHICH HE WAS SUCCESSFUL AT OBTAINING. HOWEVER, PULSE IS VERY WEAK AND FAINT DESPITE DOPPLER. DR. HOBBS STATED THAT LONG WE HAVE A POPLITEAL PULSE, IT IS OKAY. PULSES OBTAINED VIA DOPPLER TO LLE; BILATERAL LOWER EXTREMITIES ARE COLD TO THE TOUCH WITH POOR CAPILLARY REFILL. ARTERIAL LINE NOT PATENT, IN WHICH DR. HOBBS ALSO ATTEMPTED TO ASPIRATE AND FLUSH WITH NO SUCCESS. PER HELPLINE, IT IS OKAY TO DISCONTINUE PRESSURE BAG AND CLAMP OFF LONG WE ARE OBTAINING BP'S FROM IABP. GOAL IS TO MAINTAIN MAP >65. LEVOPHED AT 6MCG/MIN UPON ASSUMPTION OF CARE; HOWEVER, HAS SINCE BEEN TITRATED DOWN TO 2MCG/MIN WITH MAP'S MAINTAINING >65. AUGEMENTED PRESSURE ALARM SET AT 82. MODE IS AUTOMATIC WITH FREQUENCY BEING 1:1. PT IS IN A NSR WITH BBB HR 60-70'S. PT PRODUCING ADEQUATE AMOUNTS OF URINE OUTPUT HOURLY. CENTRAL LINE TO RIGHT IJ; PROPOFOL CURRENTLY AT 20MCG/KG/MIN. PRECEDEX AT 0.2MCG/KG/HR, AMIODARONE AT 0.5MCG/HR. NS AT 50MLS/HR. HEPARIN AT 12 UNITS/KG/HR. FAMILY HAS BEEN UPDATED REGARDING PT'S STATUS. PLEASE SEE SHIFT SUMMARY FOR FURTHER DETAILS.
[2021-01-31 01:16] LABS: BASOPHILS ABSOLUTE AUTO 0.01 K/mm3 (0.00-0.23); BASOPHILS PERCENT AUTO 0 % (0-2); EOSINOPHILS ABSOLUTE AUTO 0.14 K/mm3 (0.00-0.68); EOSINOPHILS PERCENT AUTO 2 % (0-6); Hematocrit 45.3 % (37.0-53.0); Hemoglobin 15.2 g/dL (13.5-17.5); IMMATURE GRAN ABSOLUTE AUTO 0.03 K/mm3 (0.00-0.10); IMMATURE GRAN PERCENT AUTO 0 % (0-1); LYMPHOCYTES ABSOLUTE AUTO 0.53 K/mm3 (0.84-5.20); LYMPHOCYTES PERCENT AUTO 7 % (21-46); MONOCYTES PERCENT AUTO 3 % (4-13); Mean Corpuscular HGB 29.4 pg (26.0-34.0); Mean Corpuscular HGB Conc 33.6 g/dL (31.5-36.5); Mean Corpuscular Volume 88 fL (80-100); Mean Platelet Volume 9.8 fL (9.1-12.4); NEUTROPHILS ABSOLUTE AUTO 6.57 K/mm3 (1.96-9.15); NEUTROPHILS PERCENT AUTO 88 % (41-73); Platelet Count 231 K/mm3 (150-400); RDW Coefficient Variation 15.6 % (11.7-14.2); RDW Standard Deviation 50.2 fL (35.1-46.3); Red Blood Cell Count 5.17 M/mm3 (4.30-5.90); White Blood Cell Count 7.48 K/mm3 (4.00-11.30)
[2021-01-31 01:31] LABS: International Normalized Ratio 1.22
[2021-01-31 01:53] LABS: Anion Gap 5 mmol/L (6-16); Blood Urea Nitrogen 14 mg/dL (8-24); Bun/Creatinine Ratio 16.9 (12.0-20.0); CO2, Blood 30 mmol/L (21-32); Calcium, Blood 7.7 mg/dL (8.5-10.1); Chloride, Blood 101 mmol/L (98-108); Creatinine, Blood 0.83 mg/dL (0.60-1.20); Glomerular Filtration Rate >60 (60-); Glucose, Blood 194 mg/dL (70-99); Magnesium, Blood 2.2 mg/dL (1.6-2.4); Phosphorus, Blood 3.8 mg/dL (2.5-4.9); Potassium, Blood 3.8 mmol/L (3.5-5.5); Sodium, Blood 136 mmol/L (136-145); Thyroid Stimulating Hormone 0.257 uIU/mL (0.360-4.800)
[2021-01-31 02:04] LABS: C-REACTIVE PROTEIN, EXT RANGE >19.000 mg/dL (0.000-0.300)
--- NOTE | 2021-01-31 05:08 | NUR ---
END OF SHIFT SUMMARY NO SIGNIFICANT CHANGES. VENT SETTINGS REMAIN UNCHANGED. RESP RATE INCREASED UP TO THE 30'S AT ONE POINT WHILE ATTEMPTING TO BRING DOWN SEDATION; THEREFORE, MEDICATED WITH 50MCG OF FENTANYL AND INCREASED PROPOFOL FROM 20 TO 35MCG/KG/MIN. PRECEDEX TURNED OFF AT THIS POINT. PT STILL DIFFICULT TO AROUSE DESPITE PROPOFOL AT 20MCG/KG/MIN; HOWEVER, I WAS ABLE TO OBTAIN A POSITIVE GAG AND COUGH REFLEX DURING THAT TIME. PROPOFOL IS CURRENTLY AT 30MCG/KG/MIN WITH RESP RATE 24. PT REMAINS ON IABP ON AUTO WITH 1:1 FREQUENCY. AUGMENTATION HAS REMAINED IN THE 90'S WITH A FEW DROPS TO THE 80'S WHEN ATTEMPTING TO WEAN PRESSORS. LEVOPHED CURRENTLY AT 2MCG/MIN. AMIODARONE INFUSING AT 0.5MG/HR. HEPARIN INCREASED TO 14 UNITS/KG/HR. NS AT 50MLS/HR. RIGHT GROIN SITES REMAIN STABLE WITH NO OOZING OR HEMATOMA NOTED TO SURROUNDING TISSUE. DISTAL PULSES TO RLE REMAIN ABSENT; HOWEVER, POPLITEAL PULSE REMAINS WEAK VIA DOPPLER. LLE PULSES REMAIN PRESENT VIA DOPPLER, WELL LEFT RADIAL PULSE. URINE OUTPUT HAS REMAINED ADEQUATE T/O SHIFT DESPITE DIURETICS BEING GIVEN EARLIER IN SHIFT. URINE IS MORE DARK CHRISTIANO IN COLOR, BUT CLEAR. TEMP ELEVATED TO 101.3; MEDICATED WITH TYLENOL PER ORDERS WITH GOOD EFFECT. SEE FLOWSHEET REGARDING CARDIAC CALCS AND VS. WILL CONTINUE TO MONITOR UNTIL REPORT IS HANDED OFF TO ONCOMING RN.
[2021-01-31 09:17] LABS: PCO2 Arterial 42.8 mmHg (35-45); PO2 Arterial 76.8 mmHg (80-100); pH Blood Arterial 7.44 (7.35-7.45)
--- NOTE | 2021-01-31 09:31 | NUR ---
CARE ASSUMED PT REMAINS INTUBATED AND SEDATED WITH PROPOFOL 25MCG, INCREASED TO 35MCG FOR RR 26 WITHOUT CHANGE NOTED, NO GRIMACING OR RESTLESSNESS, PT MOVES UPPER EXTREMS TO NOXIOUS STIMULI, COUGH, GAG, AND SWALLOW PRESENT. SWB RESTRAINTS IN PLACE. VENT AC 14, Vt 500, PEEP 14, FI2 100%. LS CTA, NO SECRETIONS FROM ETT. HR 80'S SINUS WITH BBB AND 1ST DEG AV BLOCK. PA CATH AND IABP IN TO R GROIN IN PLACE, 1:1, AUGMENTED PRESSURES 90-110, CO 5.3, CVP 10, PAS/PAD 50'S/20'S, SEE FLOW SHEET FOR CARDIAC CALCS. MAP REMAINS >65, NO PRESSORS INFUSING. AMIO 0.5MG/HR, HEPARIN GTT 14U/KG/HR. RLE COOL, DUSKY, SLOW CAP REFILL, PEDAL/PT PULSES ABSENT. PULSE PRESENT TO R POPLITEAL VIA DOPPLER, DR LORA PER PREVIOUS RN REPORT. R RADIAL PULSE STRONG. SWAN PA CATH 70CM OUT, NO MIGRATION PER MARKING ON TUBE. MORIN SECURED, PATENT AND DRAINING, HOURLY OUTPUT BEING MONITORED, >30ML/HR AT THIS TIME. ABD SOFT, NO GRIMACING ON PLAPATION, BT PRESENT. CENTRAL LINE TO R IJ. DR. HART IN AT 0800, IABP FREQUENCY CHANGED TO 1:2 PER , NEW ORDERS RECEIVED. HR INCREASED TO 90'S, RHYTHM UNCHANGED, PAS/PAD UNCHANGED. AUGMENTED PRESSURE CURRENTLY 120, UNASSISTED BP 110/71, ASSISTED BP 104/70, MAP 93. AMIO GTT STOPPED FOR PO TRANSITION, HEPARIN GTT INCREASED TO 15U PER PHARMACY.
--- NOTE | 2021-01-31 14:30 | NUR ---
HEPARIN OFF PER DR. HOBBS IN PREP FOR DC OF BALLOON PUMP, PHARMACY NOTIFIED.
--- NOTE | 2021-01-31 15:38 | NUR ---
UPDATE BALLOON PUMP HAS BEEN WEANED TO 1:[address] HOBBS, PT HAS TOLERATED WELL. MAP REMAINS 78-82, HR 90'S. CVP 12, PAP ELEVATED BUT UNCHANGED FROM THIS AM, 50'S/20'S. CO IMPROVING. LINES ZEROED THIS MORNING. PT REMAINS SEDATED WITH 35MCG PROPOFOL GTT, VENT SETTINGS AC 14, Vt 500, PEEP 14, FIO2 90%, WILL ATTEMPT TO CONTINUE TO DECREASE FIO2 PT TOLERATES, SPO2 CURRENTLY 95%, RR 21, PEAK PRESSURE 24. LS CLEAR WITH FAINT RUB NOTED T/O, NO ETT SECRETIONS. TF INFUSING PER ORDERS, BT PRESENT. GOOD URINE OUTPUT THIS SHIFT. LINES REMAIN UNCHANGED, NO MIGRATION NOTED, DRESSINGS INTACT, NO BLEEDING OR OOZING TODAY, SITES SOFT. RLE WITH DOPPLER PULSES ONLY TO POPLITEAL, HOWEVER COLOR AND TEMPERATURE HAVE IMPROVED FROM THIS MORNING, STILL REMAIN COOL AND DUSKY WITH SLUGGISH CAP REFILL. DOPPLER PULSES TO LLE, BILAT RADIAL PULSES STRONG. UNASYN INFUSING PER NEW ORDERS.
--- NOTE | 2021-01-31 17:26 | NUR ---
RHYTHM CHANGE PT CONVERTED TO AFIB WITH OCCASIONAL PVC'S NOTED, BBB PRESENT. BALLOON PUMP TRIGGER REMAINS ECG PER BALLOON PUMP GUIDELINES.
--- NOTE | 2021-01-31 18:16 | NUR ---
END OF SHIFT PT REMAINED SEDATED WITH PROPOFOL 35MCG/KG/MIN, MEDICATED WITH PRN FENTANYL X2. PT MINIMALLY RESPONSIVE WITH INCREASED PROPOFOL, DOES GAG AND COUGH DURING SOME BUT NOT ALL ORAL CARES/SUCTIONING. LS WITH RUB T/O, SMALL AMOUNT OF WHITE SECRETIONS FROM ETT THIS EVNING. VENT SETTINGS AC 14, Vt 500, PEEP 14, FIO2 90%, RR 22, PEAK PRESSURE 28. PT CONVERTED TO AFIB AROUND 1730 THIS EVENING, RATE CONTROLLED AT 90-110, BBB, OCCASIONAL PVC'S. AUGMENTED PRESSURE 103 AT THIS TIME, MAP 88, SEE CARDIAC REASSESSMENTS FOR DETAILS. CO THIS AFTERNOON 5.3. RLE CIRCULATION IMPROVING, PULSES TO POPLITEAL BY DOPPLER ONLY AND PEDAL AND PT REMAIN ABSENT, BUT FOOT AND LE ARE WARMER AND HAVE BETTER COLOR, REMAIN SLIGHTLY COOL AND DUSKY BUT WITH OBVIOUS IMPROVEMENT WITH IABP WEANING. ABD SOFT WITH BT PRESENT, PT TOLERATING TF WELL, RESIDUAL 40ML THIS EVENING. URINE OUTPUT >30ML T/O SHIFT, INCREASES WITH LASIX. R GROIN PA CATH AND IABP SITES WNL, SOFT, NO BLEEDING. R IJ CL FUNCTIONING WELL, NO ACTIVE BLEEDING NOTED TODAY. DR. HOBBS PLANS TO RETURN AROUND 193 TONIGHT TO REMOVE IABP.
--- NOTE | 2021-01-31 20:53 | NUR ---
ASSUMED PT CARE FROM HERRERA OVERTON AT 1900 PT REMAINED INTUBATED AND SEDATED. VENT REMAINED WITH AC 14, VT 500, PEEP 14, FIO2 90%. PROPOFOL AT 35MCG/KG/MIN. IABP STILL IN PLACE WITH SETTINGS 1:3. LEVOPHED REMAINED OFF WITH GOOD UNASSISTED, WELL ASSISTED BP'S, SEE FLOWSHEET. AUGMENTED PRESSURES 110-120'S. PA CATHETER REMAINED TO RIGHT GROIN; MARKING APPROXIMATELY AT 70CM. PT WAS SLIGHT ELEVATED WITH PA AND CVP PRESSURES; HOWEVER, PER REPORT DR. HOBBS AWARE WITH NO ORDER CHANGES. PT WAS IN AFIB WITH HR 90-110'S UPON ASSUMPTION OF CARE. AMIODARONE GTT FINISHED AROUND 0900 AND PT WAS SWITCHED TO PO AMIODARONE WHICH WAS GIVEN DOWN HIS OG. GOOD URINE OUTPUT NOTED IN MORIN CATHETER. LEFT RADIAL PULSE WAS PALPABLE AND STRONG. DOPPLER TO LEFT PEDAL AND TIBIAL PULSES, WELL RIGHT POPLITEAL. RIGHT LOWER EXTREMITY REMAINS COLD TO THE TOUCH AND DUSKY WITH CAP REFILL >3 SEC. PLAN OF CARE WAS TO PULL BOTH PA AND IABP AT 1930. HEPARIN HAS BEEN OFF SINCE [address] HOBBS ARRIVED AT THE BEDSIDE AROUND 1914 AND WAS PREPPING TO PULL OUT PA CATHETER FIRST. UPON PA CATHETER COMING OUT PT WENT INTO VTACH WITH HR NOTED TO BE HIGH 210 AT 1920, PULSE PRESENT AT THIS TIME; CPR STARTED BY DR. HOBBS WHILE NURSING STAFF OBTAINED ZOLL. UPON PLACEMENT OF PADS CPR WAS RESUMED FOR A SHORT PERIOD OF TIME UNTIL WE WERE READY TO SHOCK. FIRST SHOCK DELIVERED AT 1922 FOLLOWED BY ONE ROUND OF EPI. CPR RESUMED AT THIS TIME. DR. ROBERTO TO THE ROOM AT THIS TIME AND STOPPED PROPOFOL. IABP SWITCHED BACK TO A 1:1 FREQUENCY. RHYTHM CHECKED AT 192; PT REMAINED VTACH AND ANOTHER SHOCK WAS DELIEVERED AT 200J, FOLLOWED BY COMPRESSIONS AND ANOTHER ROUND OF EPI. LEVOPHED RESTARTED AT 15MCG/MIN AT THIS TIME. AMIODARONE 300MG BOLUS WAS ALSO ADMINISTERED. RHYTHM AT THIS TIME SHOWED WIDE QRS, NO P WAVES, HR 120. 2GM OF MAG SULFATE GIVEN AT 193 AND AN AMIODARONE GTT, NEOSYNEPHRINE, VASOPRESSIN, AND LEVOPHED WERE ALL ORDERED AT THIS TIME. DR. ROBERTO STEPPED OUT AT THIS TIME TO CALL FAMILY WITH AN UPDATE. OXYGEN SATURATIONS NOTED TO BE 74% DESPITE FIO2 AT 100% AND PEEP OF 14. NEW ORDERS TO INCREASE PEEP TO 18. DR. HOBBS RESUTURING BALLOON PUMP CATHETER TO RIGHT GROIN SITE; THEREFORE, ORDERS WERE OBTAINED TO RESTART HEPARIN AT 15 UNITS/KG/HR WITH PHARMACY TO FOLLOW. PT REMAINED HYPOTENSIVE; THEREFORE, LEVOPHED WAS INCREASED TO 30MCG/MIN. AT 1949 AMIODARONE GTT STARTED AT 1MG X6 HOURS, NEOSYNEPHRINE GTT ALSO STARTED AT 75MCG/MIN. CODE PANEL OF LABS OBTAINED AND DR. HOBBS LEFT AT THIS TIME. CURRENTLY PT REMAINS 1:1 ON THE IABP. AUGMENTED PRESSURES ARE 100-115 WITH STABLE ASSISTED BP'S. LEVOPHED CURRENTLY AT 15MCG/MIN. NEOSYNEPHRINE ON STANDBY. PT STARTED WAKING UP; ABLE TO OPEN EYES SPONTANEOUSLY. DOES NOT TRACK OR FOLLOW COMMANDS. GROSS MOTOR MOVEMENT NOTED TO RIGHT ARM AND LEG; THEREFORE, MEDICATED WITH 50MCG OF FENTANYL AND PLACED PROPOFOL BACK ON AT 15MCG/KG/MIN. OXYGEN SATURATIONS REMAIN 86-88% WITH VENT SETTINGS AC 14, VT 500, PEEP 18, FIO2 100%. DR. ROBERTO AWARE AT THIS TIME. 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 TEMP 100.0. ADEQUATE URINE OUTPUT REMAINS. PULSES UNCHANGED TO BILATERAL LOWER EXTREMITIES. PT HAS VHP INFUSING AT GOAL OF 25MLS/HR WITH 30CC WATER FLUSHES Q4HR. SEE SHIFT SUMMARY FOR FURTHER DETAILS.
[2021-01-31 21:37] LABS: BASOPHILS ABSOLUTE AUTO 0.05 K/mm3 (0.00-0.23); BASOPHILS PERCENT AUTO 0 % (0-2); EOSINOPHILS ABSOLUTE AUTO 0.02 K/mm3 (0.00-0.68); EOSINOPHILS PERCENT AUTO 0 % (0-6); Hematocrit 48.1 % (37.0-53.0); Hemoglobin 15.6 g/dL (13.5-17.5); IMMATURE GRAN ABSOLUTE AUTO 0.31 K/mm3 (0.00-0.10); IMMATURE GRAN PERCENT AUTO 3 % (0-1); LYMPHOCYTES ABSOLUTE AUTO 1.03 K/mm3 (0.84-5.20); LYMPHOCYTES PERCENT AUTO 9 % (21-46); MONOCYTES ABSOLUTE AUTO 0.39 K/mm3 (0.16-1.47); MONOCYTES PERCENT AUTO 3 % (4-13); Mean Corpuscular HGB 29.3 pg (26.0-34.0); Mean Corpuscular HGB Conc 32.4 g/dL (31.5-36.5); Mean Corpuscular Volume 90 fL (80-100); Mean Platelet Volume 10.8 fL (9.1-12.4); NEUTROPHILS ABSOLUTE AUTO 10.22 K/mm3 (1.96-9.15); NEUTROPHILS PERCENT AUTO 85 % (41-73); Platelet Count 257 K/mm3 (150-400); RDW Coefficient Variation 15.6 % (11.7-14.2); RDW Standard Deviation 52.7 fL (35.1-46.3); Red Blood Cell Count 5.33 M/mm3 (4.30-5.90); White Blood Cell Count 12.02 K/mm3 (4.00-11.30)
[2021-01-31 21:46] LABS: Anion Gap 13 mmol/L (6-16); Blood Urea Nitrogen 19 mg/dL (8-24); Bun/Creatinine Ratio 21.2 (12.0-20.0); CO2, Blood 25 mmol/L (21-32); Calcium, Blood 7.9 mg/dL (8.5-10.1); Chloride, Blood 96 mmol/L (98-108); Glomerular Filtration Rate >60 (60-); Glucose, Blood 393 mg/dL (70-99); Magnesium, Blood 3.5 mg/dL (1.6-2.4); Phosphorus, Blood 3.7 mg/dL (2.5-4.9); Potassium, Blood 3.6 mmol/L (3.5-5.5); Sodium, Blood 134 mmol/L (136-145)
[2021-01-31 21:53] LABS: International Normalized Ratio 1.25; Prothrombin Time Results 13.3 Sec (9.7-11.5)
[2021-02-01 06:03] LABS: Albumin, Blood 1.9 g/dL (3.4-5.0); Albumin/Globulin Ratio 0.4 (0.8-1.8); Alk Phos 181 U/L (50-136); Anion Gap 10 mmol/L (6-16); Aspartate Aminotrans (AST/SGOT 278 U/L (12-37); Blood Urea Nitrogen 25 mg/dL (8-24); Bun/Creatinine Ratio 24.3 (12.0-20.0); CO2, Blood 27 mmol/L (21-32); Calcium, Blood 8.1 mg/dL (8.5-10.1); Chloride, Blood 94 mmol/L (98-108); Creatinine, Blood 1.03 mg/dL (0.60-1.20); Globulin, Blood 4.5 g/dL (2.2-4.0); Glomerular Filtration Rate >60 (60-); Glucose, Blood 487 mg/dL (70-99); Magnesium, Blood 2.6 mg/dL (1.6-2.4); Phosphorus, Blood 3.6 mg/dL (2.5-4.9); Potassium, Blood 3.7 mmol/L (3.5-5.5); Sodium, Blood 131 mmol/L (136-145); Total Protein, Blood 6.4 g/dL (6.4-8.2)
--- NOTE | 2021-02-01 06:22 | NUR ---
END OF SHIFT SUMMARY VENT SETTINGS REMAIN AC 14, VT 500, PEEP 18, FIO2 100%. RR 20-30'S. SPO2 >88%. NEURO STATUS REMAINS UNCHANGED. ATTEMPTED TO KEEP LIGHTLY SEDATED TO OBTAIN A BETTER NEURO ASSESSMENT; HOWEVER, PT MAINTAINED RESP RATE IN THE 30'S; THEREFORE, PROPOFOL CURRENTLY AT 35MCG/KG/MIN WITH RESP RATE LOWER 20'S. LUNG SOUNDS HAVE REMAINED DIMINISHED T/O WITH ELEVATED PEAK PRESSURES IN THE UPPER 30'S. DIFFICULT TO OBTAIN COUGH/GAG REFLEX WITH SEDATION WHERE IT CURRENTLY IS; UNABLE TO OBTAIN SPUTUM CULTURE THIS SHIFT. IABP REMAINS TO RIGHT GROIN SITE; SITE IS SOFT, NON-TENDER WITH NO OOZING NOTED. DISTAL RLE IS DUSKY AND COLD AND REMAINS WITHOUT PULSES TO TIBIAL/DORSALIS PEDIS; HOWEVER, POPLITEAL STILL PRESENT VIA DOPPLER. LLE REMAINS WITH GOOD PULSES VIA DOPPLER. LEFT RADIAL IS STRONG AND PALPABLE. GOOD URINE OUTPUT NOTED THIS SHIFT. OBTAINING ASSISTED BP'S FROM IABP; HOWEVER, NON-INVASIVE BP CUFF REMAINS TO RIGHT UPPER EXTREMITY IN ORDER TO FISH DRIER VITAL SIGNS IN ADDITION TO ENTERING ASSISTED BP'S IN [place]; THEREFORE, SOME BP'S WILL APPEAR WITH MAPS <65; HOWEVER, PT HAS REMAINED WITH A MAP >65 T/O ENTIRE SHIFT PER THE IABP PRESSURES. HR REMAINS SINUS TACH WITH A BBB. NO ECTOPY NOTED SINCE LAST ENTRY. TMAX 100.8. PT CURRENTLY HAS LEVOPHED INFUSING AT 6MCG/MIN. AMIODARONE AT 0.5MG/HR. HEPARIN AT 17 UNITS/KG/HR. AND NS TKO. CENTRAL LINE TO RIGHT IJ. VHP INFUSING AT GOAL OF 25MLS/HR WITH MINIMAL RESIDUALS THIS SHIFT. BLOOD SUGARS REMAIN >400 THIS SHIFT. NEW ORDERS FROM DR. ROBERTO TO ADMINISTER 10 UNITS OF LANTUS X1 DOSE WITH AN INCREASE IN SCHEDULED HUMILIN R BID. FAMILY HAS BEEN UPDATED BY MYSELF, DR. HOBBS, AND DR. ROBERTO. WOULD LIKE TO COME SEE PT TODAY; HOWEVER, PER GRANDDAUGHTER SHE BECOMES VERY ANXIOUS AND OVERWHELMED EASILY IN WHICH SHE IS KNOWN FOR HAVING PANIC ATTACKS. INFORMED THE GRANDDAUGHTER THAT PT IS SEDATED AND HAS MANY PUMPS, MACHINES, WELL LINES/TUBES EXPOSED; THEREFORE, SHE MAY NOT WANT TO SEE HIM IF THAT IS THE CASE. GRANDDAUGHTER STATED SHE WOULD TALK IT OVER WITH THE AND CREATE A PLAN FOR TODAY. INFORMED GRANDDAUGHTER THAT IF THE NEEDED A SUPPORT PERSON TO ASSIST WITH HER OXYGEN NEEDS, WELL EMOTIONAL NEEDS, THEN SHE WOULD MORE THAN LIKELY BE ABLE TO HAVE A SUPPORT PERSON ASSIST HER TO THE UNIT DURING THE VISITING HOURS.
[2021-02-01 06:35] LABS: Alanine Aminotransfer (ALT/SGP 175 U/L (12-78)
[2021-02-01 06:50] LABS: BASOPHILS ABSOLUTE AUTO 0.02 K/mm3 (0.00-0.23); BASOPHILS PERCENT AUTO 0 % (0-2); EOSINOPHILS PERCENT AUTO 0 % (0-6); Hematocrit 44.9 % (37.0-53.0); Hemoglobin 14.8 g/dL (13.5-17.5); IMMATURE GRAN ABSOLUTE AUTO 0.09 K/mm3 (0.00-0.10); IMMATURE GRAN PERCENT AUTO 1 % (0-1); LYMPHOCYTES ABSOLUTE AUTO 0.37 K/mm3 (0.84-5.20); LYMPHOCYTES PERCENT AUTO 3 % (21-46); MONOCYTES ABSOLUTE AUTO 0.43 K/mm3 (0.16-1.47); MONOCYTES PERCENT AUTO 3 % (4-13); Mean Corpuscular HGB 29.5 pg (26.0-34.0); Mean Corpuscular Volume 90 fL (80-100); Mean Platelet Volume 10.2 fL (9.1-12.4); NEUTROPHILS ABSOLUTE AUTO 11.78 K/mm3 (1.96-9.15); NEUTROPHILS PERCENT AUTO 93 % (41-73); Platelet Count 248 K/mm3 (150-400); RDW Coefficient Variation 15.6 % (11.7-14.2); RDW Standard Deviation 51.8 fL (35.1-46.3); Red Blood Cell Count 5.01 M/mm3 (4.30-5.90); White Blood Cell Count 12.69 K/mm3 (4.00-11.30)
--- NOTE | 2021-02-01 07:30 | NUR ---
ASSUMED CARE BEDSIDE REPORT RECIEVED. PT IS INTUBATED AND SEDATED. VENT SETTING AC 14, TV 500, PEEP 18, FIO2 100%. PT WITH SCANT ETT SECRETIONS AND MODERATE BLOODY ORAL SECRETIONS. PT WITH MINIMAL GAG REFLEX WITH DEEP SUCTION. PT WITH VERY WEAK COUGH. PT SEDATED WITH PROPOFOL AT 35 MCG/KG/MIN. WITH PROPOFOL ON STANDBY FOR SHORT PERIOD, PT DOES NOT MOVE ANY EXTREMITIES TO NOXIOUS STIMULI, PT WITH FIXED GAZE. RIGHT PUPIL 6, NON REACTIVE, LEFT PUPIL 2, SLUGGISH. SBW RESTRAINTS IN PLACE. IABP IN PLACE TO RIGHT GROIN SITE. IABP FREQUENCY CHANGED FROM 1:1 TO 1:[address] HOBBS ORDERS. ASSISTED AND UNASSISTED BP REMAIN STABLE. SEE VS FLOWSHEET FOR MORE INFO. ARTERIAL LINE PORT OF IABP CATHETER CLAMPED AT THIS TIME. LINE IS SUTURED IN PLACE, DRESSING INTACT. HR 100-110'S. OGT IN PLACE WITH TF AT GOAL RATE. MORIN TEMP PROBE IN PLACE WITH CLEAR YELLOW OUTPUT NOTED. BLE'S COOL/DUSKY. LLE PULSES PRESENT WITH DOPPLER. RLE PULSES ABSENT. RIGHT POPLITEAL PULSE NOTED WITH DOPPLER. DR HOBBS AWARE. CENTRAL LINE TO RIJ C/D/I. LEVOPHED, HEPARIN, AND NS TKO INFUSING. AMIO DC'D PER ORDERS. WILL CONTINUE TO MONITOR.
[2021-02-01 10:48] LABS: Source, Urine Catheter
[2021-02-01 10:53] LABS: Appearance, Urine Hazy (Clear); Bilirubin, Urine Neg (Neg); Blood, Urine 5+ (Neg); Color, Urine Yellow (P-Yellow); Glucose Qualitative, Urine 3+ (Neg); Ketones, Urine Neg (Neg); Leukocyte Esterase, Urine Neg (Neg); Nitrite, Urine Neg (Neg); Protein, Urine 2+ (Neg); Urobilinogen, Urine NORM (Normal)
--- NOTE | 2021-02-01 11:00 | NUR ---
IABP TIMING CHANGE DR HART AT BEDSIDE. PT SWITCHED TO 1:3 AUGMENTATION. MAP REMAINS 80. UNASSISTED BP REMAINS STABLE. LEVOPHED REMAINS AT 2 MCG/MIN. PLAN TO CONTINUE 1:3 FOR A COUPLE OF HOURS THEN DR HOBBS TO ASSESS IF ABLE TO DC IABP TODAY. WILL CONTINUE TO MONITOR.
[2021-02-01 13:03] LABS: Red Blood Cells, Urine 50-100 /hpf (0-2); Squamous Epithelial Cells Rare /hpf (Few); White Blood Cells, Urine 0-2 /hpf (0-5)
[2021-02-01 13:04] LABS: Amorphous Light (0-Heavy); Bacteria Few /hpf
--- NOTE | 2021-02-01 13:30 | NUR ---
DR HOBBS/IABP CHANGE DR HOBBS AT BEDSIDE. IABP PLACED ON STANDBY FOR 3 MINUTES. PT BP 100'S/70'S WITH IABP ON STANDY AND 2 MCG/MIN LEVOPHED. ORDERS RECIEVED TO PLACE PT BACK TO 1:1 AUGMENTATION AND DISCONTINUE HEPARIN GTT WITH ANTICIPATION OF IABP REMOVAL AROUND 1800. NO OTHER ACUTE CHANGES NOTED AT THIS TIME. WILL CONTINUE TO MONITOR.
--- NOTE | 2021-02-01 17:48 | NUR ---
Spoke with granddaughter Tutu on the phone. She is asking if the pt is receiving his Arixtra home medication.
--- NOTE | 2021-02-01 18:35 | NUR ---
SHIFT SUMMARY / IABP REMOVAL DR HOBBS AT BEDSIDE 1730. IABP CHANGED BACK TO 1:3 AUGMENTATION. PT NONINVASIVE BP HYPOTENSIVE. LEVOPHED INCREASED TO 6 MCG/MIN WITH GOOD IMPROVEMENT NOTED. DR HOBBS PREPPED SITE FOR REMOVAL, TURNED OFF IABP, AND PULLED IABP AT 1745. ARTERIAL SHEATH THEN REMOVED AND FEMSTOP PLACED WITH 200 MMHG PRESSURE IN BALLOON. ORDERS RECIEVED TO SLOWLY DECREASE FEMSTOP PRESSURE EVERY 30 MINUTES, THEN REMOVE FEMSTOP AT 2145 IF HEMOSTASIS ACHIEVED. SITE IS STABLE AT THIS TIME, PRESSURE REDUCED TO 150 MMHG, NO HEMATOMA OR OOZING NOTED. RIGHT POPLITEAL PULSE PRESENT WITH DOPPLER. PT VENT SETTINGS UNCHANGED THIS SHIFT. AC 14, TV 500, PEEP 18, FIO2 95%. PT WITH MINIMAL ETT SECRETIONS. PT REMAINS SEDATED WITH PROPOFOL AT 35 MCG/KG/MIN. PT UNAROUSEABLE TO VERBAL AND NOXIOUS STIMULI. PUPILS REMAIN UNCHANGED THROUGHOUT THE SHIFT. OGT REMAINS IN PLACE WITH TF INFUSING AT 30 ML/HR GOAL RATE. CENTRAL LINE TO RIJ INTACT WITH NS INFUSING TKO AND LEVOPHED AT 4 MCG/MIN AT THIS TIME. MORIN TEMP PROBE REMAINS IN PLACE WITH CLEAR YELLOW OUTPUT WITH SEDIMENT NOTED. RIGHT LOWER EXTREMITY REMAINS DUSKY/COOL. SBW RESTRAINTS REMAIN IN PLACE. VITAL SIGNS STABLE AT THIS TIME. WILL CONTINUE TO MONITOR AND REPORT OFF TO ONCOMING RN.
[2021-02-02 03:17] LABS: PCO2 Arterial 63.1 mmHg (35-45); PO2 Arterial 86.7 mmHg (80-100); pH Blood Arterial 7.37 (7.35-7.45)
[2021-02-02 03:45] LABS: BASOPHILS ABSOLUTE AUTO 0.02 K/mm3 (0.00-0.23); BASOPHILS PERCENT AUTO 0 % (0-2); EOSINOPHILS PERCENT AUTO 0 % (0-6); Hematocrit 42.6 % (37.0-53.0); Hemoglobin 13.8 g/dL (13.5-17.5); IMMATURE GRAN ABSOLUTE AUTO 0.08 K/mm3 (0.00-0.10); IMMATURE GRAN PERCENT AUTO 1 % (0-1); LYMPHOCYTES ABSOLUTE AUTO 0.35 K/mm3 (0.84-5.20); LYMPHOCYTES PERCENT AUTO 3 % (21-46); MONOCYTES ABSOLUTE AUTO 0.48 K/mm3 (0.16-1.47); MONOCYTES PERCENT AUTO 4 % (4-13); Mean Corpuscular HGB 29.3 pg (26.0-34.0); Mean Corpuscular HGB Conc 32.4 g/dL (31.5-36.5); Mean Corpuscular Volume 90 fL (80-100); Mean Platelet Volume 10.8 fL (9.1-12.4); NEUTROPHILS ABSOLUTE AUTO 10.55 K/mm3 (1.96-9.15); NEUTROPHILS PERCENT AUTO 92 % (41-73); Platelet Count 192 K/mm3 (150-400); RDW Coefficient Variation 15.7 % (11.7-14.2); RDW Standard Deviation 52.1 fL (35.1-46.3); Red Blood Cell Count 4.71 M/mm3 (4.30-5.90); White Blood Cell Count 11.48 K/mm3 (4.00-11.30)
[2021-02-02 04:01] LABS: International Normalized Ratio 1.08; Prothrombin Time Results 11.6 Sec (9.7-11.5)
[2021-02-02 04:21] LABS: Magnesium, Blood 2.7 mg/dL (1.6-2.4)
[2021-02-02 04:22] LABS: Alanine Aminotransfer (ALT/SGP 120 U/L (12-78); Albumin, Blood 1.7 g/dL (3.4-5.0); Albumin/Globulin Ratio 0.4 (0.8-1.8); Alk Phos 178 U/L (50-136); Anion Gap 3 mmol/L (6-16); Aspartate Aminotrans (AST/SGOT 94 U/L (12-37); Bilirubin, Total 0.8 mg/dL (0.1-1.0); Blood Urea Nitrogen 35 mg/dL (8-24); Bun/Creatinine Ratio 38.8 (12.0-20.0); CO2, Blood 36 mmol/L (21-32); Calcium, Blood 7.7 mg/dL (8.5-10.1); Chloride, Blood 95 mmol/L (98-108); Globulin, Blood 4.6 g/dL (2.2-4.0); Glomerular Filtration Rate >60 (60-); Glucose, Blood 450 mg/dL (70-99); Phosphorus, Blood 1.9 mg/dL (2.5-4.9); Potassium, Blood 4.1 mmol/L (3.5-5.5); Sodium, Blood 134 mmol/L (136-145); Thyroid Stimulating Hormone 0.028 uIU/mL (0.360-4.800); Total Protein, Blood 6.3 g/dL (6.4-8.2)
[2021-02-02 04:28] LABS: C-REACTIVE PROTEIN, EXT RANGE >19.000 mg/dL (0.000-0.300)
--- NOTE | 2021-02-02 07:30 | NUR ---
SHIFT SUMMARY REMOVED FEM STOP SUCESSFULY @ 21:45, RESTARTED HEPARIN DRIP 20 MINUTES LATER. NO BLEEDING, HEMATOMA FROM SITE NOTED. AROUND MIDNIGHT STARTED TILTING PATIENT GENTLY SIDE TO SIDE; GROIN SITE STABLE, HOWEVER WITH EACH TILT PT HR INCREASED 20-40 BPM FOR A COUPLE OF MINUTES, SPO2 DECREASED TO ~ 91%, DID NOT COMPLETE FULL TURN FOR BED BATH FOR FEAR OF DECOMPENSATION. DECREASED FIO2 FROM 95 TO 90%. NO FURTHER CHANGES THRU NIGHT. ASSESSMENT IS CHARTED. VSS.
--- NOTE | 2021-02-02 09:42 | NUR ---
PT INTUBATED AND SEDATED WITH PROPOFOL. PT IS NOT RESPONSIVE. R PUPIL LARGER THAN L AND IRREGULAR SHAPE. R LEG IS COOL AND DUSKY. COULD NOT FIND PEDAL PULSES BUT WAS ABLE TO FIND POPLITEAL PULSE WITH DOPPLER. DR. HOBBS AT BEDSIDE AND AWARE. R FEMORAL ACCESS SITE IS STABLE. ON LEVOPHED GTT AT 2MCG/MIN. HEPARIN GTT MANAGED BY PHARMACY. SEE ASSESSMENT.
--- NOTE | 2021-02-02 19:32 | NUR ---
SUMMARY PT INTUBATED AND SEDATED WITH PROPOFOL. UNRESPONSIVE. DID NOT LIFT SEDATION PT IS STILL NOT STABLE ENOUGH. PT HAD AN EPISODE WITH REPOSITIONING WHERE HE STARTED COUGHING, RR INCREASED, BP DROPPED, SPO2 DROPPED, AND HR WENT UP. WAS UNABLE TO SUCTION ANYTHING FROM ETT. AFTER PT DID NOT APPEAR TO RECOVER ON HIS OWN, PILLOWS WERE PULLED OUT FROM BEHIND HIM SLIGHTLY AND PT WAS ABLE TO RECOVER. AFTER THAT PT WAS GENTLY TILTED EVERY 2 HRS. PT RLE IS DUSKY AND COOL. DR. HOBBS AWARE OF INABILITY TO FIND PEDAL PULSES. WAS ABLE TO FIND POPLITEAL WITH DOPPLER. LLE IS COOL BUT WARMER THAN R AND ABLE TO FIND POST TIB PULSE WITH DOPPLER. CAP REFILL >3 SEC BILAT. R FEMORAL ACCESS SITE STABLE ALL DAY. INSULIN ADJUSTED BY DR. ROBERTO TODAY. CONTINUES TO HAVE HIGH GLUCOSE. LEVOPHED TITRATED ANYWHERE FROM 2-5MCG. DR. HOBBS WANTS LIVER ENZYMES CHECKED IN AM AND MIGHT START ON AMIO IF ENZYMES OK. TRIED DOSE OF DIGOXIN THAT DID NOT HAVE MUCH AFFECT. DR. HOBBS ORDERED IV DOSE FOR LATER TONIGHT. NO OTHER CHANGES THIS SHIFT.
[2021-02-03 02:43] LABS: BASOPHILS ABSOLUTE AUTO 0.05 K/mm3 (0.00-0.23); BASOPHILS PERCENT AUTO 0 % (0-2); EOSINOPHILS PERCENT AUTO 0 % (0-6); Hematocrit 43.6 % (37.0-53.0); Hemoglobin 13.9 g/dL (13.5-17.5); IMMATURE GRAN ABSOLUTE AUTO 0.31 K/mm3 (0.00-0.10); IMMATURE GRAN PERCENT AUTO 2 % (0-1); LYMPHOCYTES ABSOLUTE AUTO 0.72 K/mm3 (0.84-5.20); LYMPHOCYTES PERCENT AUTO 6 % (21-46); MONOCYTES ABSOLUTE AUTO 0.73 K/mm3 (0.16-1.47); MONOCYTES PERCENT AUTO 6 % (4-13); Mean Corpuscular HGB 29.1 pg (26.0-34.0); Mean Corpuscular HGB Conc 31.9 g/dL (31.5-36.5); Mean Corpuscular Volume 91 fL (80-100); Mean Platelet Volume 10.3 fL (9.1-12.4); NEUTROPHILS ABSOLUTE AUTO 11.13 K/mm3 (1.96-9.15); NEUTROPHILS PERCENT AUTO 86 % (41-73); NRBC ABSOLUTE 0.07 K/mm3 (0.00-0.02); NRBC Auto 0.5 /100 WBC (0.0-0.2); Platelet Count 210 K/mm3 (150-400); RDW Coefficient Variation 15.7 % (11.7-14.2); RDW Standard Deviation 53.1 fL (35.1-46.3); Red Blood Cell Count 4.78 M/mm3 (4.30-5.90); White Blood Cell Count 12.94 K/mm3 (4.00-11.30)
[2021-02-03 03:05] LABS: Alanine Aminotransfer (ALT/SGP 146 U/L (12-78); Albumin, Blood 1.7 g/dL (3.4-5.0); Albumin/Globulin Ratio 0.4 (0.8-1.8); Alk Phos 285 U/L (50-136); Anion Gap 2 mmol/L (6-16); Aspartate Aminotrans (AST/SGOT 177 U/L (12-37); Bilirubin, Total 0.8 mg/dL (0.1-1.0); Blood Urea Nitrogen 43 mg/dL (8-24); Bun/Creatinine Ratio 46.6 (12.0-20.0); CO2, Blood 39 mmol/L (21-32); Chloride, Blood 95 mmol/L (98-108); Creatinine, Blood 0.92 mg/dL (0.60-1.20); Globulin, Blood 4.7 g/dL (2.2-4.0); Glomerular Filtration Rate >60 (60-); Glucose, Blood 353 mg/dL (70-99); Magnesium, Blood 2.9 mg/dL (1.6-2.4); Phosphorus, Blood 2.5 mg/dL (2.5-4.9); Potassium, Blood 4.5 mmol/L (3.5-5.5); Sodium, Blood 136 mmol/L (136-145); Total Protein, Blood 6.4 g/dL (6.4-8.2)
[2021-02-03 03:55] LABS: PO2 Arterial 77.1 mmHg (80-100); pH Blood Arterial 7.36 (7.35-7.45)
[2021-02-03 03:56] LABS: PCO2 Arterial 72.3 mmHg (35-45)
--- NOTE | 2021-02-03 06:37 | NUR ---
SHIFT SUMMARY PATIENT SLEPT WELL THRU NIGHT. NIGHT HAS GONE ON, URINE HAS GOTTEN PROGRESSIVELY DARKER, SLIGHTLY MORE DIMINISHED URINE OUTPUT COMPARED TO PREVIOUS SHIFTS. Kasi LINDESY INCREASED RESPIRATORY RATE PER DR ROBERTO ORDERS, AWAITING NEW ABG ~ 10:00. STILL DOES NOT EXHIBIT PURPOSEFUL MOVEMENT; IF ANYTHING PT HAS GOTTEN WEAKER COUGH/GAG REFLEX, JIGGLED ETT SLIGHTLY TO ELICIT A RESPONSE. ASSESSMENT IS CHARTED. VSS. WILL CONTINUE TO MONITOR.
[2021-02-03 06:53] LABS: Alanine Aminotransfer (ALT/SGP 152 U/L (12-78); Albumin, Blood 1.7 g/dL (3.4-5.0); Albumin/Globulin Ratio 0.4 (0.8-1.8); Alk Phos 289 U/L (50-136); Aspartate Aminotrans (AST/SGOT 190 U/L (12-37); Bilirubin, Direct 0.6 mg/dL (0.0-0.3); Bilirubin, Indirect 0.3 mg/dL (0.1-0.7); Bilirubin, Total 0.9 mg/dL (0.1-1.0); Globulin, Blood 4.7 g/dL (2.2-4.0); Total Protein, Blood 6.4 g/dL (6.4-8.2)
[2021-02-03 10:05] LABS: PCO2 Arterial 64.5 mmHg (35-45)
[2021-02-03 10:06] LABS: PO2 Arterial 69.2 mmHg (80-100)
--- NOTE | 2021-02-03 12:34 | NUR ---
PT INTUBATED AND SEDATED WITH PROPOFOL. UNRESPONSIVE. WILL BE GETTING A HEAD CT TODAY. WILL TRY TO TITRATE PROPOFOL DOWN TODAY. LEVOPHED OFF AT THE MOMENT. PT HAS BEEN FEBRILE, ICE PACKS AND FANS PLACED. PT HAS BEEN GETTING TYLENOL WELL WITHOUT RELIEF. DR. KATZ SAW PT TODAY. DIGOXIN IV DOSE ORDERED AND GIVEN. HR HAS IMPROVED. PT'S DORSALIS PEDAL PULSE IS FOUND BY DOPPLER NOW. UNABLE TO FIND PEDAL PULSES ON R SIDE. POPLITEAL PULSE TO R LEG FOUND BY DOPPLER. PT IS GETTING TILTED EVERY 2 HRS. DOES NOT TOLERATE FULL REPOSITIONING. RR GOES UP, HR GOES UP, SPO2 DROPS, BP DROPS, AND PT BEGINS DRY COUGHING THAT IS DIFFICULT TO GET STOPPED. TUBE FEED GOAL DECREASED TO 25ML/HR.
--- NOTE | 2021-02-03 17:53 | NUR ---
Received request from [employer] to speak with pt's family today regarding pt's condition. Dr. Melendez called pt's today regarding new subdural bleed. Pt has been on the ventilator for quite some time, with no improvement. This RN spoke to pt's granddaughter Tutu who is very realistic and understands pt's prognosis is worsening each day. She also tells me that pt's has pt's living will, and he did not want to be on ventilation halfway. Tutu states the pt's has held this document back, as she wanted to wait. However, she and Tutu are going to talk again tonight. Dr. Melendez plans to call pt's again tomorrow to update her on pt's status. Tutu and I also discussed pt's code status, and she will call tomorrow to discuss possibly changing pt to DNR after talking her grandma, pt's .
--- NOTE | 2021-02-03 18:35 | NUR ---
SUMMARY PT INTUBATED AND SEDATED WITH PROPOFOL. WHEN OFF SEDATION THIS AFTERNOON RR AND HR INCREASED, IRREG RESP PATTERN. PLACED BACK ON SEDATION TO GO TO CT. AFTER CT NEVER LIFTED SEDATION AGAIN. HEPARIN, BRILINTA, AND ASA STOPPED AFTER CT RESULTS. DR. ROBERTO SPOKE WITH [facility]. PT WAS TITRATED OFF LEVOPHED TODAY. US OF RLE WAS DONE WELL TO ASSESS BLOOD FLOW. PT HAS BEEN FEBRILE ALL DAY. HAVE BEEN USING ICE PACKS AND FANS TO TRY TO LOWER IT. TYLENOL DOES NOT SEEM TO BE WORKING AND PT'S LIVER ENZYMES ARE ELEVATED. WILL REPORT TO MARI SILVERMAN.
[2021-02-04 04:30] LABS: BASOPHILS ABSOLUTE AUTO 0.06 K/mm3 (0.00-0.23); BASOPHILS PERCENT AUTO 1 % (0-2); EOSINOPHILS PERCENT AUTO 0 % (0-6); Hematocrit 43.3 % (37.0-53.0); Hemoglobin 13.7 g/dL (13.5-17.5); IMMATURE GRAN PERCENT AUTO 3 % (0-1); LYMPHOCYTES ABSOLUTE AUTO 0.85 K/mm3 (0.84-5.20); LYMPHOCYTES PERCENT AUTO 7 % (21-46); MONOCYTES ABSOLUTE AUTO 0.75 K/mm3 (0.16-1.47); MONOCYTES PERCENT AUTO 6 % (4-13); Mean Corpuscular HGB 29.4 pg (26.0-34.0); Mean Corpuscular HGB Conc 31.6 g/dL (31.5-36.5); Mean Corpuscular Volume 93 fL (80-100); Mean Platelet Volume 10.9 fL (9.1-12.4); NEUTROPHILS ABSOLUTE AUTO 10.15 K/mm3 (1.96-9.15); NEUTROPHILS PERCENT AUTO 83 % (41-73); NRBC ABSOLUTE 0.53 K/mm3 (0.00-0.02); NRBC Auto 4.3 /100 WBC (0.0-0.2); Platelet Count 155 K/mm3 (150-400); RDW Coefficient Variation 15.6 % (11.7-14.2); RDW Standard Deviation 53.6 fL (35.1-46.3); Red Blood Cell Count 4.66 M/mm3 (4.30-5.90); White Blood Cell Count 12.21 K/mm3 (4.00-11.30)
[2021-02-04 04:44] LABS: International Normalized Ratio 1.06; Prothrombin Time Results 11.4 Sec (9.7-11.5)
--- NOTE | 2021-02-04 05:01 | NUR ---
SHIFT SUMMARY COMPLETE CT OF HEAD ~ 02:45 THIS AM, PT OFF MONITOR FROM 02:30 - 02:50, NO ADVERSE EVENTS WHILE IN SCANNER. EARLIER IN SHIFT, PT EXPERIENCED BRADYCARDIA WHILE COMPLETING FIRST BIG TURN, NO OTHER EVENTS WITH SUBSEQUENT TURNS. WAS ABLE TO TURN PT FULLY ALL SHIFT, COMPLETED BED BATH WITH NO ADVERSE EVENTS. HAVE HAD TO INCREASE PROPOFOL TO 40 MCG/KG/MIN,
[2021-02-04 05:03] LABS: Digoxin (Lanoxin) 0.97 ug/mL (0.80-2.00); Magnesium, Blood 3.1 mg/dL (1.6-2.4)
[2021-02-04 05:06] LABS: Phosphorus, Blood 2.6 mg/dL (2.5-4.9)
--- NOTE | 2021-02-04 07:30 | NUR ---
ASSUMED CARE REPORT RECIEVED. PT IS INTUBATED AND SEDATED. VENT SETTINGS AC 22, TV 500, PEEP 18, FIO2 90%. PT WITH BROWN TINGED ORAL SECRETIONS, NO ETT SECRETIONS WITH SUCTION. PT SEDATED WITH PROPOFOL AT 40 MCG/KG/MIN. PT UNRESPONSIVE TO NOXIOUS STIMULI AND MINIMAL COUGH/GAG NOTED. VITAL SIGNS STABLE. HR 90-110'S. OGT IN PLACE WITH TF AT GOAL RATE. CENTRAL LINE TO RIJ C/D/I. NS INFUSING TKO. MORIN TEMP PROBE IN PLACE WITH YELLOW URINE OUTPUT NOTED. SBW RESTRAINTS IN PLACE. LLE PULSES BY DOPPLER. RLE PULSES ABSENT, RIGHT POPLITEAL PULSE WITH DOPPLER NOTED. WILL CONTINUE TO MONITOR.
--- NOTE | 2021-02-04 12:00 | NUR ---
DNR DR CASTANEDA HAD EXTENSIVE DISCUSSION WITH PT BRADFORD BEGUM ABOUT CURRENT PT STATUS AND REMAINING UNRESPONSIVE TO NOXIOUS STIMULI DESPITE SEDATIVES BEING ON STANDBY. DECISION MADE FOR DNR STATUS AT THIS TIME. KEL STATES SHE WILL DISCUSS POTENTIAL TRANSITION TO COMFORT CARE IN THE UPCOMING DAYS WITH PT SPOUSE EMILY.
--- NOTE | 2021-02-04 15:15 | NUR ---
PROPOFOL WASTE PROPOFOL PULLED AND BROUGHT INTO COVID ISOLATION ROOM AROUND 1130 IN ANTICIPATION OF NEEDING NEW BOTTLE. BOTTLE NOT SPIKED OR SCANNED. AFTER DISCUSSION WITH DR CASTANEDA, DECIDED TO DC PROPOFOL AND LEAVE PT OFF SEDATION. CALLED PHARMACY TO ASK IF BOTTLE CAN BE RETURNED. PHARMACY STATES IT CANNOT BE RETURNED FROM A COVID ISO ROOM AND IT MUST BE WASTED. BOTTLE WASTED IN ROOM WITH YNES SANCHEZ WITNESS.
[2021-02-04 15:31] LABS: Performing Lab STATE LAB
[2021-02-04 15:32] LABS: Result SEE SEPERATE REPORT
--- NOTE | 2021-02-04 17:57 | NUR ---
TIME OF THIS RN AT BEDSIDE UPDATING PT LUZ JEAN. PT NOTED TO BE HYPOTENSIVE WITH HR 90'S. LEVOPHED STARTED, DR CASTANEDA UPDATED. PT THEN RAPIDLY BRADYED TO 50'S AND MAINTAINTED. UNABLE TO OBTAIN BP. PT THEN WENT ASYSTOLE. PT SON INFORMED OF SITUATION. NO PALPABLE PULSE NOTED, NO AUDIBLE HEART TONES AUSCULTATED. TIME OF 173. DR CASTANEDA AND CABLE TECHNICIAN ROBY AT DOORWAY. RT TO BEDSIDE AT 1738 TO EXTUBATE PT. PT BRADFORD BEGUM NOTIFIED AND PLANS TO COME IN.
== END 2021-02-04 17:33 | DRG 853 ==
LOC: ER 20:03 → ICUE 22:16 → PCU 22:16 → ERHOLD 22:16 → PCU 01-25 01:58 → ICUE 01-30 09:09
PROVIDERS: Emergency Medicine; Family Medicine; Internal Medicine; Internal Medicine Cardiovascular Disease; Internal Medicine Critical Care Medicine; Internal Medicine Pulmonary Disease; Pharmacist; ADMIT Internal Medicine
PROC: 5A09357 Assistance with Respiratory Ventilation, Less than 24 Consecutive Hours, Continuous Positive Airway Pressure (ICD-10-PCS; principal; 2021-01-24)
PROC: 02HV33Z Insertion of Infusion Device into Superior Vena Cava, Percutaneous Approach (ICD-10-PCS; 2021-01-24)
PROC: 3E043XZ Introduction of Vasopressor into Central Vein, Percutaneous Approach (ICD-10-PCS; 2021-01-24)
PROC: 8E0ZXY6 Isolation (ICD-10-PCS; 2021-01-24)
PROC: XW033E5 Introduction of Remdesivir Anti-infective into Peripheral Vein, Percutaneous Approach, New Technology Group 5 (ICD-10-PCS; 2021-01-24)
PROC: 027036Z Dilation of Coronary Artery, One Artery with Three Drug-eluting Intraluminal Devices, Percutaneous Approach (ICD-10-PCS; 2021-01-28)
PROC: 0BH17EZ Insertion of Endotracheal Airway into Trachea, Via Natural or Artificial Opening (ICD-10-PCS; 2021-01-30)
PROC: 5A1955Z Respiratory Ventilation, Greater than 96 Consecutive Hours (ICD-10-PCS; 2021-01-30)
PROC: 4A023N8 Measurement of Cardiac Sampling and Pressure, Bilateral, Percutaneous Approach (ICD-10-PCS; 2021-01-30)
PROC: B2111ZZ Fluoroscopy of Multiple Coronary Arteries using Low Osmolar Contrast (ICD-10-PCS; 2021-01-30)
PROC: B2131ZZ Fluoroscopy of Multiple Coronary Artery Bypass Grafts using Low Osmolar Contrast (ICD-10-PCS; 2021-01-30)
PROC: B2181ZZ Fluoroscopy of Left Internal Mammary Bypass Graft using Low Osmolar Contrast (ICD-10-PCS; 2021-01-30)
PROC: 3E0333Z Introduction of Anti-inflammatory into Peripheral Vein, Percutaneous Approach (ICD-10-PCS; 2021-01-30)
PROC: B31U1ZZ Fluoroscopy of Pulmonary Trunk using Low Osmolar Contrast (ICD-10-PCS; 2021-01-30)
PROC: 5A02210 Assistance with Cardiac Output using Balloon Pump, Continuous (ICD-10-PCS; 2021-01-31)
PROC: 5A12012 Performance of Cardiac Output, Single, Manual (ICD-10-PCS; 2021-01-31)
PROC: 5A2204Z Restoration of Cardiac Rhythm, Single (ICD-10-PCS; 2021-01-31)
DX: A41.89 Other specified sepsis (principal); U07.1 COVID-19; J12.82 Pneumonia due to coronavirus disease 2019; J96.01 Acute respiratory failure with hypoxia; R65.21 Severe sepsis with septic shock; I60.9 Nontraumatic subarachnoid hemorrhage, unspecified; Z66 Do not resuscitate; R40.20 Unspecified coma; I21.11 ST elevation (STEMI) myocardial infarction involving right coronary artery; D68.51 Activated protein C resistance; I47.2 Ventricular tachycardia; G93.1 Anoxic brain damage, not elsewhere classified; E87.1 Hypo-osmolality and hyponatremia; E78.5 Hyperlipidemia, unspecified; M10.9 Gout, unspecified; R57.0 Cardiogenic shock; G43.909 Migraine, unspecified, not intractable, without status migrainosus; I25.10 Atherosclerotic heart disease of native coronary artery without angina pectoris; E11.9 Type 2 diabetes mellitus without complications; E66.01 Morbid (severe) obesity due to excess calories; Z68.38 Body mass index [BMI] 38.0-38.9, adult; I46.9 Cardiac arrest, cause unspecified; B95.61 Methicillin susceptible Staphylococcus aureus infection as the cause of diseases classified elsewhere; I48.0 Paroxysmal atrial fibrillation; J01.90 Acute sinusitis, unspecified; D45 Polycythemia vera; K22.70 Barrett's esophagus without dysplasia; R94.31 Abnormal electrocardiogram [ECG] [EKG]; R74.01 Elevation of levels of liver transaminase levels; F32.9 Major depressive disorder, single episode, unspecified; E83.39 Other disorders of phosphorus metabolism; M54.9 Dorsalgia, unspecified; N40.0 Benign prostatic hyperplasia without lower urinary tract symptoms; G47.33 Obstructive sleep apnea (adult) (pediatric); I10 Essential (primary) hypertension; G89.4 Chronic pain syndrome; Z88.8 Allergy status to other drugs, medicaments and biological substances; Z79.899 Other long term (current) drug therapy; Z79.4 Long term (current) use of insulin; Z79.82 Long term (current) use of aspirin; I25.2 Old myocardial infarction; Z86.711 Personal history of pulmonary embolism; Z90.49 Acquired absence of other specified parts of digestive tract; Z98.890 Other specified postprocedural states; Z87.442 Personal history of urinary calculi; Z87.891 Personal history of nicotine dependence; Z86.718 Personal history of other venous thrombosis and embolism; Z95.1 Presence of aortocoronary bypass graft; Z90.89 Acquired absence of other organs; Z95.5 Presence of coronary angioplasty implant and graft
CPT/HCPCS: 31500; 33967; 36200; 36415; 36556; 36600; 51703; 70450; 71045; 75743; 76937; 80048; 80053; 80069; 80076; 80162; 81001; 82728; 82803; 82947; 83605; 83615; 83735; 83880; 84100; 84145; 84443; 84484; 85025; 85347; 85379; 85610; 85651; 85730; 86140; 86141; 87040; 87070; 87077; 87086; 87147; 87186; 87205; 92610; 92921; 92941; 92950; 93005; 93010; 93461; 93926; 94002; 94003; 94640; 94660; 94762; 96374; 99152; 99153; 99285-25; A9270; C1725; C1751; C1769; C1874; C1887; C1894; C8929; C9606; J0282; J0295; J0461; J0690; J1160; J1644; J1815; J1940; J2060; J2250; J2270; J2370; J2704; J3010; J3246; J3370; J3475; J3480; J7030; J7040; J7050; J7060; Q9957; Q9967; U0004